=== PATIENT | female | born 1930 | race Caucasian/White ===

== ENCOUNTER 2016-12-03 23:54 | Emergency (ER) | payer MEDICARE, BC ==
--- NOTE | 2016-12-04 00:11 | Emergency Department Record ---
History of Present Illness - General Chief Complaint: Fall Injury Stated Complaint: FALL/CUT HEAD Time Seen by Provider: 12/04/16 00:06 Source: Patient, Family, EMS Mode of Arrival: EMS Limitations: No limitations - History of Present Illness Initial Comments: pt fell backwards after losing her balance and hit the back of her head. there was no loc. MD Complaint: Fall Onset/Timin -: Minutes(s) Fall From: Standing When Fall Occurred: Just prior to arrival Fall Witnessed: No Place Fall Occurred: Home Loss of Consciousness: None Prolonged Down Time?: No Symptoms Prior to Fall: None Location: Head Severity scale (1-10): 3 Associated Symptoms: Denies - [place] Coma Scale Eye Response: (4) Open spontaneously Motor Response: (6) Obeys commands Verbal Response: (5) Oriented [place] Total: 15 - Related Data Home Medications Medication Instructions Recorded Confirmed Last Taken Insulin Aspart [Novolog] 4 unit SQ 1715 PRN 03/26/14 12/04/16 05/10/16 Insulin Glargine,Hum.rec.anlog 12 unit SQ QAM 03/26/14 12/04/16 12/03/16 [Lantus] Amiodarone HCl [Cordarone] 200 mg PO DAILY 04/07/16 12/04/16 12/03/16 Aspirin [Adult Low Dose Aspirin EC] 81 mg PO DAILY 04/07/16 12/04/16 12/03/16 Atorvastatin Calcium [Lipitor] 20 mg PO DAILY 04/07/16 12/04/16 09/03/16 Apixaban [Eliquis] 5 mg PO BID 04/30/16 12/04/16 12/03/16 Spironolactone [Aldactone] 25 mg PO DAILY 08/19/16 12/04/16 12/03/16 Isosorbide Mononitrate [Imdur] 30 mg PO DAILY 12/04/16 12/04/16 12/03/16 Levofloxacin [Levaquin Tab] 500 mg PO ASDIR 12/04/16 12/04/16 Unknown Levothyroxine Sodium [Synthroid] 88 mcg PO DAILY 12/04/16 12/04/16 12/03/16 Torsemide [Demadex] 20 mg PO DAILY 12/04/16 12/04/16 12/03/16 Allergies Allergy/AdvReac Type Severity Reaction Status Date / Time codeine Allergy Unknown ALTERED Verified 05/11/16 08:14 MENTAL STATUS erythromycin base Allergy Unknown ALTERED Verified 05/11/16 08:14 MENTAL STATUS Penicillins Allergy Unknown RASH Verified 05/11/16 08:14 Sulfa (Sulfonamide Allergy Unknown RASH Verified 05/11/16 08:14 Antibiotics) shellfish derived Allergy VOMITING Verified 05/11/16 08:14 Travel Screening - Travel/Exposure Within Last 30 Days Have you traveled within the last 30 days?: No - Travel Symptoms Symptom Screening: None Review of Systems Reviewed: No additional complaints except as noted below Constitutional: Reports: As per HPI. Denies: Chills, Fever, Malaise, Night sweats, Weakness, Weight change Eyes: Reports: As per HPI. Denies: Eye discharge, Eye pain, Photophobia, Vision change ENT: Reports: As per HPI. Denies: Congestion, Dental pain, Ear pain, Epistaxis , Hearing loss, Throat pain Respiratory: Reports: As per HPI. Denies: Cough, Dyspnea, Hemoptysis, Stridor, Wheezes Cardiovascular: Reports: As per HPI. Denies: Arrhythmia, Chest pain, Dyspnea on exertion, Edema, Murmurs, Orthopnea, Palpitations, Paroxysmal nocturnal dyspnea, Rheumatic Fever, Syncope Endocrine: Reports: As per HPI. Denies: Fatigue, Heat or cold intolerance, Polydipsia, Polyuria Gastrointestinal: Reports: As per HPI. Denies: Abdominal pain, Constipation, Diarrhea, Hematemesis, Hematochezia, Melena, Nausea, Vomiting Genitourinary: Reports: As per HPI. Denies: Abnormal menses, Discharge, Dyspareunia, Dysuria, Frequency, Hematuria, Incontinence, Retention, Urgency Musculoskeletal: Reports: As per HPI. Denies: Arthralgia, Back pain, Gout, Joint swelling, Myalgia, Neck pain Skin: Reports: As per HPI. Denies: Bruising, Change in color, Change in hair/ nails, Lesions, Pruritus, Rash Neurological: Reports: As per HPI. Denies: Abnormal gait, Confusion, Headache, Numbness, Paresthesias, Seizure, Tingling, Tremors, Vertigo, Weakness Psychiatric: Reports: As per HPI. Denies: Anxiety, Auditory hallucinations, Depression, Homicidal thoughts, Suicidal thoughts, Visual hallucinations Hematological/Lymphatic: Reports: As per HPI. 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 - Hx Genitourinary Disorders: No - ENDOCRINE Hx Endocrine Disorders: Yes Hx Diabetes: Yes Hx Thyroid Disease: Yes - MUSCULOSKELETAL Hx Musculoskeletal Disorders: Yes Hx Arthritis: Yes - PSYCH Hx Psych Problems: No - HEMATOLOGY/ONCOLOGY Hx Hematology/Oncology Disorders: No Family Medical History Any Significant Family History?: Yes Hx Diabetes: Father Hx Heart Disease: Mother Hx HTN: Mother Physical Exam - General General Appearance: Alert, Oriented x3, Cooperative, Mild distress - Head Head exam: Normal inspection Head exam detail: Laceration - Eye Eye exam: Normal appearance, PERRL, EOMI Pupils: Normal accommodation - ENT ENT exam: Normal exam, Mucous membranes moist, Normal external ear exam, Normal orophraynx Ear exam: Normal external inspection. negative: External canal tenderness Nasal Exam: Normal inspection. negative: Discharge, Sinus tenderness Mouth exam: Normal external inspection, Tongue normal Teeth exam: Normal inspection. negative: Dental caries Throat exam: Normal inspection. negative: Tonsillar erythema, Tonsillar exudate - Neck Neck exam: Normal inspection, Tenderness, Other (in collar). negative: Full ROM - Respiratory Respiratory exam: Normal lung sounds bilaterally. negative: Respiratory distress - Cardiovascular Cardiovascular Exam: Regular rate, Normal rhythm, Normal heart sounds - GI/Abdominal GI/Abdominal exam: Soft, Normal bowel sounds. negative: Tenderness - Rectal Rectal exam: Deferred - exam: Deferred - Extremities Extremities exam: Normal inspection, Full ROM, Normal capillary refill. negative: Tenderness - Back Back exam: Reports: Normal inspection, Full ROM. Denies: Muscle spasm, Rash noted, Tenderness - Neurological Neurological exam: Alert, CN II-XII intact, Normal gait, Oriented X3 - Psychiatric Psychiatric exam: Normal affect, Normal mood - Skin Skin exam: Dry, Intact, Normal color, Warm Course Vital Signs 12/04/16 00:02 Temperature 97.5 F L Pulse Rate [ 60 Pulse Ox Probe] Respiratory 16 Rate Blood Pressure 133/77 [Left Arm] Pulse Ox 97 Medical Decision Making - Management Options MDM Management: Additional Work-up Planned (e.g. ADM/Transfer/OP Study) - Data Complexity MDM Data: X-Ray Ordered and/or Reviewed Disposition Disposition: Discharge Clinical Impression: Head injury due to trauma Qualifiers: Encounter type: initial encounter Qualified Code(s): S09.90XA - Unspecified injury of head, initial encounter Laceration of scalp Qualifiers: Encounter type: initial encounter Qualified Code(s): S01.01XA - Laceration without foreign body of scalp, initial encounter Disposition: Home, Self-Care Condition: (1) Good Instructions: Fall Prevention for Older Adults (ED), Laceration (ED), Staple Care (ED), Minor Head Injury (ED) Additional Instructions: follow up with family doctor. return sooner if worse. jana out in 10-12 days Forms: Patient Portal Access Laceration - Head - Time Out Informed consent:: Informed consent obtained Confirmed first & last name, , procedure, correct site?: Yes Start Date: 12/04/16 Start Time: 01:15 - Location Location of laceration:: Superior, Posterior Laceration located on:: Scalp Length of laceration:: 2.5 Length of laceration:: cm Face/Head: 1 - 2.5cm - Clean and Prep Laceration cleaning method:: Cleansed, Copious Irrigation Laceration cleaning agent:: Normal Saline - Topical Anesthetic Lidocaine used:: 1% with epi EMLA cream used?: No - Medication Medicated for procedure?: No - Procedural Detail Tissue detail:: Torn Foreign body in the wound?: No Undermining was preformed?: No Stent applied?: No Jana applied?: Yes Total number of jana:: 5
--- NOTE | 2016-12-08 10:35 | CT SCAN REPORT ---
EXAM: CT OF THE BRAIN HISTORY: FELL LAST NIGHT, INJURY TO THE BACK OF THE HEAD. TECHNIQUE: CT of the brain was performed without contrast. Comparison: None. Hand dominance: Right. FINDINGS: There is prominence of the ventricles and subarachnoid spaces compatible with atrophy. There is no mass or mass effect. No intra or extraaxial hemorrhage. No CT evidence for large acute territorial infarct. No fracture or acute osseous abnormality identified. There are areas of hypodensity in the periventricular deep cerebral and subcortical white matter regions likely the result of chronic small vessel ischemic change. The visualized sinuses appear clear. IMPRESSION: 1. ATROPHY AND CHRONIC SMALL VESSEL ISCHEMIC CHANGES. 2. NO MASS, HEMORRHAGE, OR ACUTE INTRACRANIAL PROCESS IDENTIFIED. JOB [facility]BER: [id number] [facility]
--- NOTE | 2016-12-08 10:39 | CT SCAN REPORT ---
EXAM: CT OF THE CERVICAL SPINE HISTORY: FELL, NECK INJURY, TENDERNESS IN THE NECK. TECHNIQUE: CT of the cervical spine was performed without contrast. Comparison: None. FINDINGS: No fracture identified. There is reversal of the normal lordotic curvature possibly due to patient positioning or muscle spasm. There are prominent arthritic changes seen throughout the cervical spine. Disk space narrowing is present at all levels and is most pronounced at C5-C6 and C6-C7. There is uncovertebral spurring seen throughout the cervical spine. Facet arthritic changes are present throughout the cervical spine. There is mild effacement of the central canal at C5-C6 and C6-C7. Prominent degenerative end plate spurs are present and are most pronounced at C5-C6 and C6-C7. There is no soft tissue swelling. The dense is unremarkable. IMPRESSION: 1. NO FRACTURE OR ACUTE OSSEOUS ABNORMALITY IDENTIFIED. 2. DIFFUSE ARTHRITIC CHANGES ARE PRESENT THROUGHOUT THE CERVICAL SPINE AND ARE MOST PRONOUNCED AT C5-C6 AND C6-C7. JOB [facility]BER: [id number] [facility]
== END 2016-12-04 01:50 | disposition home or self-care (01) ==
LOC: ER 23:54
DX: S01.01XA Laceration without foreign body of scalp, initial encounter (principal); M54.2 Cervicalgia; W01.0XXA Fall on same level from slipping, tripping and stumbling without subsequent striking against object, initial encounter; Y92.009 Unspecified place in unspecified non-institutional (private) residence as the place of occurrence of the external cause
CPT/HCPCS: 12001; 70450; 72125; 99283; 99284

== ENCOUNTER 2016-12-12 16:07 | Emergency (ER) | payer MEDICARE, BC ==
--- NOTE | 2016-12-12 16:23 | Emergency Department Record ---
History of Present Illness - General Chief Complaint: Suture removal Stated Complaint: JANA REMOVED Time Seen by Provider: 12/12/16 16:19 Source: Patient Mode of arrival: Ambulatory Limitations: No limitations - History of Present Illness Initial Comments: pts lac has healed well w no problems Complaint: Suture/staple removal Returns Today for: Staple/stitch removal Symptoms Since Prior Visit: No new symptoms - Related Data Home Medications Medication Instructions Recorded Confirmed Last Taken Insulin Aspart [Novolog] 4 unit SQ 1715 PRN 03/26/14 12/04/16 05/10/16 Insulin Glargine,Hum.rec.anlog 12 unit SQ QAM 03/26/14 12/04/16 12/03/16 [Lantus] Amiodarone HCl [Cordarone] 200 mg PO DAILY 04/07/16 12/04/16 12/03/16 Aspirin [Adult Low Dose Aspirin EC] 81 mg PO DAILY 04/07/16 12/04/16 12/03/16 Atorvastatin Calcium [Lipitor] 20 mg PO DAILY 04/07/16 12/04/16 09/03/16 Apixaban [Eliquis] 5 mg PO BID 04/30/16 12/04/16 12/03/16 Spironolactone [Aldactone] 25 mg PO DAILY 08/19/16 12/04/16 12/03/16 Isosorbide Mononitrate [Imdur] 30 mg PO DAILY 12/04/16 12/04/16 12/03/16 Levofloxacin [Levaquin Tab] 500 mg PO ASDIR 12/04/16 12/04/16 Unknown Levothyroxine Sodium [Synthroid] 88 mcg PO DAILY 12/04/16 12/04/16 12/03/16 Torsemide [Demadex] 20 mg PO DAILY 12/04/16 12/04/16 12/03/16 Allergies Allergy/AdvReac Type Severity Reaction Status Date / Time codeine Allergy Unknown ALTERED Verified 05/11/16 08:14 MENTAL STATUS erythromycin base Allergy Unknown ALTERED Verified 05/11/16 08:14 MENTAL STATUS Penicillins Allergy Unknown RASH Verified 05/11/16 08:14 Sulfa (Sulfonamide Allergy Unknown RASH Verified 05/11/16 08:14 Antibiotics) shellfish derived Allergy VOMITING Verified 05/11/16 08:14 Review of Systems Reviewed: No additional complaints except as noted below Constitutional: Reports: As per HPI. Denies: Chills, Fever, Malaise, Night sweats, Weakness, Weight change Eyes: Reports: As per HPI. Denies: Eye discharge, Eye pain, Photophobia, Vision change ENT: Reports: As per HPI. Denies: Congestion, Dental pain, Ear pain, Epistaxis , Hearing loss, Throat pain Respiratory: Reports: As per HPI. Denies: Cough, Dyspnea, Hemoptysis, Stridor, Wheezes Cardiovascular: Reports: As per HPI. Denies: Arrhythmia, Chest pain, Dyspnea on exertion, Edema, Murmurs, Orthopnea, Palpitations, Paroxysmal nocturnal dyspnea, Rheumatic Fever, Syncope Endocrine: Reports: As per HPI. Denies: Fatigue, Heat or cold intolerance, Polydipsia, Polyuria Gastrointestinal: Reports: As per HPI. Denies: Abdominal pain, Constipation, Diarrhea, Hematemesis, Hematochezia, Melena, Nausea, Vomiting Genitourinary: Reports: As per HPI. Denies: Abnormal menses, Discharge, Dyspareunia, Dysuria, Frequency, Hematuria, Incontinence, Retention, Urgency Musculoskeletal: Reports: As per HPI. Denies: Arthralgia, Back pain, Gout, Joint swelling, Myalgia, Neck pain Skin: Reports: As per HPI. Denies: Bruising, Change in color, Change in hair/ nails, Lesions, Pruritus, Rash Neurological: Reports: As per HPI. Denies: Abnormal gait, Confusion, Headache, Numbness, Paresthesias, Seizure, Tingling, Tremors, Vertigo, Weakness Psychiatric: Reports: As per HPI. Denies: Anxiety, Auditory hallucinations, Depression, Homicidal thoughts, Suicidal thoughts, Visual hallucinations Hematological/Lymphatic: Reports: As per HPI. 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 - Hx Genitourinary Disorders: No - ENDOCRINE Hx Endocrine Disorders: Yes Hx Diabetes: Yes Hx Thyroid Disease: Yes - MUSCULOSKELETAL Hx Musculoskeletal Disorders: Yes Hx Arthritis: Yes - PSYCH Hx Psych Problems: No - HEMATOLOGY/ONCOLOGY Hx Hematology/Oncology Disorders: No Family Medical History Hx Diabetes: Father Hx Heart Disease: Mother Hx HTN: Mother Physical Exam - General General Appearance: Alert, Oriented x3, Cooperative, No acute distress - Head Head exam: Normal inspection Head exam detail: Laceration (well healed w jana in it) - Eye Eye exam: Normal appearance, PERRL, EOMI Pupils: Normal accommodation - ENT ENT exam: Normal exam, Mucous membranes moist, Normal external ear exam, Normal orophraynx Ear exam: Normal external inspection. negative: External canal tenderness Nasal Exam: Normal inspection. negative: Discharge, Sinus tenderness Mouth exam: Normal external inspection, Tongue normal Teeth exam: Normal inspection. negative: Dental caries Throat exam: Normal inspection. negative: Tonsillar erythema, Tonsillar exudate - Neck Neck exam: Normal inspection, Full ROM. negative: Tenderness - Respiratory Respiratory exam: negative: Respiratory distress - Cardiovascular Cardiovascular Exam: Regular rate - GI/Abdominal GI/Abdominal exam: Soft, Normal bowel sounds. negative: Tenderness - Rectal Rectal exam: Deferred - exam: Deferred - Extremities Extremities exam: Normal inspection, Full ROM, Normal capillary refill. negative: Tenderness - Back Back exam: Reports: Normal inspection, Full ROM. Denies: Muscle spasm, Rash noted, Tenderness - Neurological Neurological exam: Alert, CN II-XII intact, Normal gait, Oriented X3 - Psychiatric Psychiatric exam: Normal affect, Normal mood - Skin Skin exam: Dry, Intact, Normal color, Warm Disposition Disposition: Discharge Clinical Impression: Encounter for Removal of [place] Condition: (1) Good Instructions: Suture Removal (ED) Additional Instructions: follow up with family doctor. return sooner if worse Forms: Patient Portal Access
== END 2016-12-12 16:19 | disposition home or self-care (01) ==
LOC: ER 16:07
DX: Z48.02 Encounter for removal of sutures (principal)

== ENCOUNTER 2016-12-22 11:32 | Day surgery (SDC) | payer MEDICARE, BC ==
[2016-12-22 13:14] LABS: BASO % 0.4 % (0-6); EOS % 4.4 % (0-6); GRAN % 71.7 % (47-80); HEMATOCRIT 34.6 % (35.0-47.0); HEMOGLOBIN 11.5 gm/dl (11.6-16.0); MEAN CORPUSCULAR HGB CONC 33.2 g/dl (32-36); MEAN PLATELET VOLUME 9.7 fl (7.4-10.4); MONO % 10.5 % (0-9); PLATELET COUNT 157 K/uL (130-400); RED BLOOD COUNT 3.53 M/uL (3.80-5.40); RED CELL DISTRIBUTION WIDTH 14.5 % (11.5-14.5); WHITE BLOOD COUNT W/O DIFF 7.4 K/uL (4.2-12.2)
[2016-12-22 13:15] LABS: MEAN CORPUSCULAR HEMOGLOBIN 32.5 pg (27-33)
[2016-12-22 13:32] LABS: ALB/GLOB RATIO 1.1 (1.1-1.8); ALBUMIN 3.4 gm/dL (3.5-5.0); ANION GAP 11.6 (7-16); BILIRUBIN,TOTAL 1.37 mg/dL (0.2-1.3); CARBON DIOXIDE 25.4 mmol/L (22-30); CREATININE 1.1 mg/dL (0.52-1.04); TOTAL PROTEIN 6.6 gm/dL (6.3-8.2)
--- NOTE | 2016-12-23 12:03 | Operative Note ---
PROCEDURE: Cardioversion. DATE OF PROCEDURE: 12/22/2016. OPERATING PHYSICIAN: Titus Walker M.D. PRIMARY CARE PHYSICIAN: Ck Harris D.O. INDICATIONS: Persistent atrial fibrillation. DESCRIPTION OF PROCEDURE: Ms. Betancur was brought into the Cardioversion Room in a fasting state. The defibrillation pads were applied in the anteroposterior position. The patient has a [employer] permanent pacemaker, and pacemaker interrogation was performed. This confirmed the atrial fibrillation. After anesthesia was administered by SEBLE Baker, a synchronized direct current was used for cardioversion. Initially 100 joules of biphasic energy was used which was not successful in cardioverting her. A second attempt with 150 joules of biphasic energy was used which was successful in cardioverting her into sinus rhythm. The patient's pacemaker mode was switched to DDD with a base rate of 65, and AF suppression was also turned on with an upper rate of 85 beats per minute. The patient is hemodynamically stable. IMPRESSION: Successful direct-current cardioversion with 150 joules of biphasic energy. Titus Walker M.D. Date Time JOB NUMBER: [id number] [facility]
== END 2016-12-22 15:00 | disposition home or self-care (01) ==
LOC: SUR 11:32
PROVIDERS: ATTEND Internal Medicine
DX: I48.1 Persistent atrial fibrillation (principal); I10 Essential (primary) hypertension; E03.9 Hypothyroidism, unspecified; E11.9 Type 2 diabetes mellitus without complications; Z79.4 Long term (current) use of insulin; E78.00 Pure hypercholesterolemia, unspecified; Z79.01 Long term (current) use of anticoagulants
CPT/HCPCS: 80053; 85025; 93005

== ENCOUNTER 2017-02-20 12:16 | Emergency (ER) | payer MEDICARE, BC ==
--- NOTE | 2017-02-20 12:33 | Emergency Department Record ---
History of Present Illness - General Chief complaint: Nausea, Vomiting, Diarrhea Stated complaint: VOMITING,DIARRHEA Time Seen by Provider: 02/20/17 12:32 Source: Patient Mode of Arrival: Ambulatory Limitations: No limitations - History of Present Illness Initial comments: The patient is here due to vomiting and nausea for about 8 hours. She only had one long episode of vomiting about 4 hours ago. Additionally she has had loose stools for the last day and a half. She denies any fever, chills, abdominal pain or back pain. The patient denies any new medicines or foods. MD complaint: Diarrhea, Nausea, Vomiting Onset/Timin -: Hour(s) Description of Diarrhea: Other Associated Abdominal Pain: No Radiation: None Improves with: None Worsens with: None Associated Symptoms: Denies other symptoms, Nausea/vomiting - Related Data Home Medications Medication Instructions Recorded Confirmed Last Taken Insulin Aspart [Novolog] 4 unit SQ 1715 PRN 03/26/14 02/20/17 01/09/17 Insulin Glargine,Hum.rec.anlog 14 unit SQ QAM 03/26/14 02/20/17 02/20/17 [Lantus] Amiodarone HCl [Cordarone] 200 mg PO DAILY 04/07/16 02/20/17 02/20/17 Aspirin [Adult Low Dose Aspirin EC] 81 mg PO DAILY 04/07/16 02/20/17 02/20/17 Atorvastatin Calcium [Lipitor] 20 mg PO DAILY 04/07/16 02/20/17 01/10/17 Apixaban [Eliquis] 5 mg PO BID 04/30/16 02/20/17 02/20/17 Spironolactone [Aldactone] 25 mg PO BID 08/19/16 02/20/17 02/20/17 Isosorbide Mononitrate [Imdur] 30 mg PO DAILY 12/04/16 02/20/17 01/10/17 Levothyroxine Sodium [Synthroid] 88 mcg PO DAILY 12/04/16 02/20/17 02/20/17 Torsemide [Demadex] 20 mg PO DAILY 12/04/16 02/20/17 02/20/17 Allergies Allergy/AdvReac Type Severity Reaction Status Date / Time codeine Allergy Unknown ALTERED Verified 02/20/17 12:28 MENTAL STATUS erythromycin base Allergy Unknown ALTERED Verified 02/20/17 12:28 MENTAL STATUS Penicillins Allergy Unknown RASH Verified 02/20/17 12:28 Sulfa (Sulfonamide Allergy Unknown RASH Verified 02/20/17 12:28 Antibiotics) shellfish derived AdvReac VOMITING Verified 02/20/17 12:28 Travel Screening - Travel/Exposure Within Last 30 Days Have you traveled within the last 30 days?: No Review of Systems Constitutional: Denies: Chills, Fever Eyes: Denies: Eye discharge ENT: Denies: Congestion Respiratory: Denies: Cough, Dyspnea Cardiovascular: Denies: Chest pain Past Medical History - SOCIAL HISTORY Smoking Status: Never smoker Alcohol Use: None Drug Use: None - RESPIRATORY Hx Respiratory Disorders: No Hx Bronchitis: Yes (hx of) - CARDIOVASCULAR Hx Cardio Disorders: Yes Hx Hypertension: Yes Hx Irregular Heartbeat: Yes Hx Pacemaker/Defib: Yes Hx Coronary Stent: Yes Comment:: MVP, cardioversion for afib - NEURO Hx Neuro Disorders: No Hx Weakness: Yes (gereralized) - GI Hx GI Disorders: Yes Hx Nausea/Vomiting: Yes (all the time from meds) Hx Wt Loss/Wt Gain: Yes 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 - Hx Genitourinary Disorders: No - ENDOCRINE Hx Endocrine Disorders: Yes Hx Diabetes: Yes - MUSCULOSKELETAL Hx Musculoskeletal Disorders: Yes Hx Arthritis: Yes - PSYCH Hx Psych Problems: No - HEMATOLOGY/ONCOLOGY Hx Hematology/Oncology Disorders: No Hx Bruising: Yes (on eliquis) Hx Cancer: Yes (skin) Hx Blood Transfusions: Yes Hx Blood Transfusion Reaction: No Family Medical History Any Significant Family History?: Yes Hx Diabetes: Father Hx Heart Disease: Mother Hx HTN: Mother Physical Exam - General General Appearance: Alert, Oriented x3, Cooperative, No acute distress - Head Head exam: Atraumatic, Normocephalic, Normal inspection - Eye Eye exam: Normal appearance, PERRL - Neck Neck exam: Normal inspection, Full ROM. negative: Tenderness - Respiratory Respiratory exam: Normal lung sounds bilaterally. negative: Respiratory distress - Cardiovascular Cardiovascular Exam: Regular rate, Normal rhythm, Normal heart sounds - GI/Abdominal GI/Abdominal exam: Soft, Normal bowel sounds, Distended (chronic per patient.). negative: Guarding, Rebound, Rigid, Tenderness - Rectal Rectal exam: Heme (-) stool, Hemorrhoids. negative: Fecal impaction - Extremities Extremities exam: Normal inspection, Full ROM, Normal capillary refill. negative: Tenderness - Neurological Neurological exam: Alert. negative: Motor sensory deficit Course Vital Signs 02/20/17 12:24 Temperature 97.4 F L Pulse Rate 121 H Respiratory 18 Rate Blood Pressure 109/80 Pulse Ox 99 - Reevaluation(s) Reevaluation #1: The patient is doing much better at this time. She denies any nausea, AP, or any further loose stools. On exam her abdomen is soft and nontender. She is up walking with no difficulty and feels ready for home. 02/20/17 13:57 Medical Decision Making - Lab Data Result diagrams: 02/20/17 12:43 02/20/17 12:43 Disposition Disposition: Discharge Clinical Impression: Nausea & vomiting Qualifiers: Vomiting type: unspecified Vomiting Intractability: non-intractable Qualified Code(s): R11.2 - Nausea with vomiting, unspecified Disposition: Home, Self-Care Condition: (1) Good Instructions: Acute Nausea and Vomiting (ED) Additional Instructions: Please continue your regular medicines and see your PCP next week for recheck. Return to the ER for any increased nausea, vomiting, or diarrhea. Forms: Patient Portal Access Time of Disposition: 13:57
[2017-02-20] MEDS ORDERED: ONDANSETRON HCL IV 4 MG/2 ML VIAL IV ONE (12:38)
[2017-02-20] MEDS ORDERED: 0.9 % SODIUM CHLORIDE 1,000 ML BAG IV ONE (12:38)
[2017-02-20 12:51] LABS: BASO % 0.5 % (0-6); EOS % 1.5 % (0-6); GRAN % 74.4 % (47-80); HEMATOCRIT 37.3 % (35.0-47.0); HEMOGLOBIN 12.4 gm/dl (11.6-16.0); LYMPH % 13.2 % (16-45); MEAN CELL VOLUME 96.1 fl (81-97); MEAN CORPUSCULAR HGB CONC 33.2 g/dl (32-36); MONO % 10.4 % (0-9); PLATELET COUNT 176 K/uL (130-400); RED BLOOD COUNT 3.88 M/uL (3.80-5.40); WHITE BLOOD COUNT W/O DIFF 7.5 K/uL (4.2-12.2)
[2017-02-20 13:01] LABS: INR 1.24
[2017-02-20 13:03] LABS: ALBUMIN 3.7 gm/dL (3.5-5.0); ANION GAP 11.7 (7-16); BILIRUBIN,TOTAL 1.17 mg/dL (0.2-1.3); CARBON DIOXIDE 25.3 mmol/L (22-30); CREATININE 1.5 mg/dL (0.52-1.04); TOTAL PROTEIN 7.4 gm/dL (6.3-8.2)
== END 2017-02-20 14:12 | disposition home or self-care (01) ==
LOC: ER 12:16
DX: R11.2 Nausea with vomiting, unspecified (principal); R19.7 Diarrhea, unspecified; I10 Essential (primary) hypertension; E11.9 Type 2 diabetes mellitus without complications; Z79.01 Long term (current) use of anticoagulants; Z79.4 Long term (current) use of insulin
CPT/HCPCS: 99284 ×2; 96374; 96361; 83690; 85025; 85730; 85610; 80076; 80048; J2405; J7030

== ENCOUNTER 2017-02-27 14:49 | Emergency (ER) | payer MEDICARE, BC ==
[2017-02-27 15:46] LABS: BASO % 0.1 % (0-6); EOS % 0.2 % (0-6); HEMATOCRIT 37.2 % (35.0-47.0); HEMOGLOBIN 12.3 gm/dl (11.6-16.0); LYMPH % 3.7 % (16-45); MEAN CELL VOLUME 96.1 fl (81-97); MEAN CORPUSCULAR HEMOGLOBIN 31.8 pg (27-33); MEAN CORPUSCULAR HGB CONC 33.1 g/dl (32-36); MEAN PLATELET VOLUME 9.8 fl (7.4-10.4); MONO % 7.2 % (0-9); PLATELET COUNT 174 K/uL (130-400); RED BLOOD COUNT 3.87 M/uL (3.80-5.40); RED CELL DISTRIBUTION WIDTH 15.2 % (11.5-14.5); WHITE BLOOD COUNT W/O DIFF 15.7 K/uL (4.2-12.2)
[2017-02-27 15:56] LABS: URINE APPEARANCE CLEAR; URINE BILIRUBIN NEGATIVE (NEGATIVE); URINE BLOOD NEGATIVE (NEGATIVE); URINE COLOR YELLOW; URINE GLUCOSE (UA) NEGATIVE (NEGATIVE); URINE KETONE NEGATIVE (NEGATIVE); URINE LEUKOCYTE ESTERASE NEGATIVE (NEGATIVE); URINE NITRITE NEGATIVE (NEGATIVE); URINE PROTEIN NEGATIVE (NEGATIVE); URINE UROBILINOGEN 0.2 E.U./dL (0.20 - 1.00)
[2017-02-27 15:57] LABS: ALBUMIN 3.5 gm/dL (3.5-5.0); ANION GAP 10.9 (7-16); BILIRUBIN,TOTAL 1.83 mg/dL (0.2-1.3); CARBON DIOXIDE 25.1 mmol/L (22-30); CREATININE 2.1 mg/dL (0.52-1.04)
[2017-02-27 16:09] LABS: PLATELET ESTIMATE NORMAL (NORMAL)
--- NOTE | 2017-02-27 16:52 | Emergency Department Record ---
History of Present Illness - General Chief Complaint: Abdominal Pain Stated Complaint: ABD PAIN Time Seen by Provider: 02/27/17 15:01 Source: Patient, Family Mode of Arrival: Ambulatory Limitations: No limitations - History of Present Illness Initial Comments: pt has abd pain and swelling of her abd and no bowel movement for a week. she has nausea. a week ago she had diarrhea and vomiting but that has stopped. she feels like she is retaining a lot of fluid. MD Complaint: Abdominal pain Onset/Timin -: Week(s) Location: Diffuse Radiation: None Migration to: No migration Quality: Aching Consistency: Constant Improves With: Nothing Worsens With: Nothing Associated Symptoms: Constipation, Nausea - Related Data Patient : No Home Medications Medication Instructions Recorded Confirmed Last Taken Insulin Aspart [Novolog] 4 unit SQ 1715 PRN 03/26/14 02/27/17 02/27/17 Insulin Glargine,Hum.rec.anlog 14 unit SQ QAM 03/26/14 02/27/17 02/27/17 [Lantus] Amiodarone HCl [Cordarone] 200 mg PO DAILY 04/07/16 02/27/17 02/27/17 Aspirin [Adult Low Dose Aspirin EC] 81 mg PO DAILY 04/07/16 02/27/17 02/27/17 Atorvastatin Calcium [Lipitor] 20 mg PO DAILY 04/07/16 02/27/17 02/27/17 Apixaban [Eliquis] 5 mg PO BID 04/30/16 02/27/17 02/27/17 Spironolactone [Aldactone] 25 mg PO BID 08/19/16 02/27/17 02/26/17 Levothyroxine Sodium [Synthroid] 88 mcg PO DAILY 12/04/16 02/27/17 02/27/17 Torsemide [Demadex] 20 mg PO DAILY 12/04/16 02/27/17 02/27/17 Allergies Allergy/AdvReac Type Severity Reaction Status Date / Time codeine Allergy Unknown ALTERED Verified 02/20/17 12:28 MENTAL STATUS erythromycin base Allergy Unknown ALTERED Verified 02/20/17 12:28 MENTAL STATUS Penicillins Allergy Unknown RASH Verified 02/20/17 12:28 Sulfa (Sulfonamide Allergy Unknown RASH Verified 02/20/17 12:28 Antibiotics) shellfish derived AdvReac VOMITING Verified 02/20/17 12:28 Travel Screening - Travel/Exposure Within Last 30 Days Have you traveled within the last 30 days?: No - Travel/Exposure Within Last Year Have you traveled outside the [place] in the last year?: No - Additonal Travel Details Have you been exposed to anyone with a communicable illness?: No - Travel Symptoms Symptom Screening: None Review of Systems Reviewed: No additional complaints except as noted below Constitutional: Reports: As per HPI. Denies: Chills, Fever, Malaise, Night sweats, Weakness, Weight change Eyes: Reports: As per HPI. Denies: Eye discharge, Eye pain, Photophobia, Vision change ENT: Reports: As per HPI. Denies: Congestion, Dental pain, Ear pain, Epistaxis , Hearing loss, Throat pain Respiratory: Reports: As per HPI. Denies: Cough, Dyspnea, Hemoptysis, Stridor, Wheezes Cardiovascular: Reports: As per HPI. Denies: Arrhythmia, Chest pain, Dyspnea on exertion, Edema, Murmurs, Orthopnea, Palpitations, Paroxysmal nocturnal dyspnea, Rheumatic Fever, Syncope Endocrine: Reports: As per HPI. Denies: Fatigue, Heat or cold intolerance, Polydipsia, Polyuria Gastrointestinal: Reports: As per HPI. Denies: Abdominal pain, Constipation, Diarrhea, Hematemesis, Hematochezia, Melena, Nausea, Vomiting Genitourinary: Reports: As per HPI. Denies: Abnormal menses, Discharge, Dyspareunia, Dysuria, Frequency, Hematuria, Incontinence, Retention, Urgency Musculoskeletal: Reports: As per HPI. Denies: Arthralgia, Back pain, Gout, Joint swelling, Myalgia, Neck pain Skin: Reports: As per HPI. Denies: Bruising, Change in color, Change in hair/ nails, Lesions, Pruritus, Rash Neurological: Reports: As per HPI. Denies: Abnormal gait, Confusion, Headache, Numbness, Paresthesias, Seizure, Tingling, Tremors, Vertigo, Weakness Psychiatric: Reports: As per HPI. Denies: Anxiety, Auditory hallucinations, Depression, Homicidal thoughts, Suicidal thoughts, Visual hallucinations Hematological/Lymphatic: Reports: As per HPI. Denies: Anemia, Blood Clots, Easy bleeding, Easy bruising, Swollen glands Past Medical History - SOCIAL HISTORY Smoking Status: Never smoker Alcohol Use: None Drug Use: None - RESPIRATORY Hx Respiratory Disorders: No Hx Bronchitis: Yes (hx of) - CARDIOVASCULAR Hx Cardio Disorders: Yes Hx Hypertension: Yes Hx Irregular Heartbeat: Yes Hx Pacemaker/Defib: Yes Hx Coronary Stent: Yes Comment:: MVP, cardioversion for afib - NEURO Hx Neuro Disorders: No Hx Weakness: Yes (gereralized) - GI Hx GI Disorders: Yes Hx Nausea/Vomiting: Yes (all the time from meds) Hx Wt Loss/Wt Gain: Yes Comment:: hx detention constipation - Hx Genitourinary Disorders: No - ENDOCRINE Hx Endocrine Disorders: Yes Hx Diabetes: Yes - MUSCULOSKELETAL Hx Musculoskeletal Disorders: Yes Hx Arthritis: Yes - PSYCH Hx Psych Problems: No - HEMATOLOGY/ONCOLOGY Hx Hematology/Oncology Disorders: No Hx Bruising: Yes (on eliquis) Hx Cancer: Yes (skin) Hx Blood Transfusions: Yes Hx Blood Transfusion Reaction: No Family Medical History Any Significant Family History?: No Hx Diabetes: Father Hx Heart Disease: Mother Hx HTN: Mother Physical Exam - General General Appearance: Alert, Oriented x3, Cooperative, Mild distress - Head Head exam: Normal inspection - Eye Eye exam: Normal appearance, PERRL, EOMI Pupils: Normal accommodation - ENT ENT exam: Normal exam, Mucous membranes moist, Normal external ear exam, Normal orophraynx Ear exam: Normal external inspection. negative: External canal tenderness Nasal Exam: Normal inspection. negative: Discharge, Sinus tenderness Mouth exam: Normal external inspection, Tongue normal Teeth exam: Normal inspection. negative: Dental caries Throat exam: Normal inspection. negative: Tonsillar erythema, Tonsillar exudate - Neck Neck exam: Normal inspection, Full ROM. negative: Tenderness - Respiratory Respiratory exam: Normal lung sounds bilaterally. negative: Respiratory distress - Cardiovascular Cardiovascular Exam: Normal rhythm, Normal heart sounds, Tachycardia - GI/Abdominal GI/Abdominal exam: Soft, Normal bowel sounds, Distended, Tenderness, Other ( fluid wave) - Rectal Rectal exam: Deferred - exam: Deferred - Extremities Extremities exam: Normal inspection, Full ROM, Normal capillary refill. negative: Tenderness - Back Back exam: Reports: Normal inspection, Full ROM. Denies: Muscle spasm, Rash noted, Tenderness - Neurological Neurological exam: Alert, CN II-XII intact, Normal gait, Oriented X3 - Psychiatric Psychiatric exam: Normal affect, Normal mood - Skin Skin exam: Dry, Intact, Normal color, Warm Course Vital Signs 02/27/17 14:58 Temperature 97.4 F L Pulse Rate 117 H Respiratory 18 Rate Blood Pressure 105/75 Pulse Ox 96 Medical Decision Making - Management Options MDM Management: Additional Work-up Planned (e.g. ADM/Transfer/OP Study) - Data Complexity MDM Data: Labs Ordered and/or Reviewed, X-Ray Ordered and/or Reviewed - Lab Data Result diagrams: 02/27/17 15:23 02/27/17 15:23 Lab Results 02/27/17 02/27/17 02/27/17 Range/Units 15:23 15:23 15:45 WBC 15.7 H (4.2-12.2) K/uL RBC 3.87 (3.80-5.40) M/uL Hgb 12.3 (11.6-16.0) gm/dl Hct 37.2 (35.0-47.0) % MCV 96.1 (81-97) fl MCH 31.8 (27-33) pg MCHC 33.1 (32-36) g/dl RDW 15.2 H (11.5-14.5) % Plt Count 174 (130-400) K/uL MPV 9.8 (7.4-10.4) fl Neutrophils % 92.0 H (47-80) % Band Neutrophils % 1.0 (0-5) % Lymphocytes % 3.0 L (16-45) % Monocytes % 4.0 (0-9) % Eosinophils % 0.2 (0-6) % Basophils % 0.1 (0-6) % Platelet Estimate Normal (NORMAL) RBC Morphology Normal Sodium 132 L (136-145) mmol/L Potassium 4.7 (3.5-5.1) mmol/L Chloride 96 L (98-107) mmol/L Carbon Dioxide 25.1 (22-30) mmol/L Anion Gap 10.9 (7-16) BUN 52 H (7-17) mg/dL Creatinine 2.1 H (0.52-1.04) mg/dL Estimated GFR 24 ml/min Random Glucose 121 H (70-110) mg/dL Calcium 10.1 (8.5-10.1) mg/dL Total Bilirubin 1.83 H (0.2-1.3) mg/dL AST 30 (14-36) U/L ALT 29 (9-52) U/L Alkaline Phosphatase 119 (38-126) U/L Total Protein 7.0 (6.3-8.2) gm/dL Albumin 3.5 (3.5-5.0) gm/dL Globulin 3.5 (1.4-4.8) gm/dL Albumin/Globulin Ratio 1.0 L (1.1-1.8) Lipase 61 (23-300) U/L Urine Color Yellow Urine Appearance Clear Urine pH 5.5 (5.0-8.0) Ur Specific [place] 1.015 (1.002-1.030) Urine Protein Negative (NEGATIVE) Urine Glucose (UA) Negative (NEGATIVE) Urine Ketones Negative (NEGATIVE) Urine Blood Negative (NEGATIVE) Urine Nitrite Negative (NEGATIVE) Urine Bilirubin Negative (NEGATIVE) Urine Urobilinogen 0.2 (0.20 - 1.00) E.U./dL Ur Leukocyte Esterase Negative (NEGATIVE) Disposition Disposition: Transfer Clinical Impression: Renal insufficiency Ascites Qualifiers: Ascites type: other type Qualified Code(s): R18.8 - Other ascites Abdominal pain Qualifiers: Abdominal location: generalized Qualified Code(s): R10.84 - Generalized abdominal pain Transfer To: [facility] Reason For Transfer: ascites, hepatic cirrhosis, anasarca Accepting Physician: dr rhodes Time Discussed w/Accepting Physician: 17:55 Forms: Patient Portal Access
== END 2017-02-27 19:41 | disposition short-term general hospital (02) ==
LOC: ER 14:49
DX: N28.9 Disorder of kidney and ureter, unspecified (principal); R18.8 Other ascites; R10.84 Generalized abdominal pain; R11.0 Nausea; I10 Essential (primary) hypertension; E11.9 Type 2 diabetes mellitus without complications; Z79.4 Long term (current) use of insulin; I48.91 Unspecified atrial fibrillation; Z79.01 Long term (current) use of anticoagulants
CPT/HCPCS: 74176; 80053; 81003; 83690; 85027; 93005; 93010; 99285

== ENCOUNTER 2017-03-06 00:27 | Inpatient (IN) | payer MEDICARE, BC ==
[2017-03-06 00:47] LABS: BASO % 0.2 % (0-6); EOS % 1.7 % (0-6); GRAN % 79.3 % (47-80); HEMATOCRIT 38.3 % (35.0-47.0); HEMOGLOBIN 12.7 gm/dl (11.6-16.0); LYMPH % 9.6 % (16-45); MEAN CELL VOLUME 96.2 fl (81-97); MEAN CORPUSCULAR HEMOGLOBIN 31.9 pg (27-33); MEAN CORPUSCULAR HGB CONC 33.2 g/dl (32-36); MONO % 9.2 % (0-9); PLATELET COUNT 175 K/uL (130-400); RED BLOOD COUNT 3.98 M/uL (3.80-5.40); RED CELL DISTRIBUTION WIDTH 15.4 % (11.5-14.5); WHITE BLOOD COUNT W/O DIFF 10.5 K/uL (4.2-12.2)
[2017-03-06 00:59] LABS: ALBUMIN 3.2 gm/dL (3.5-5.0); ANION GAP 11.4 (7-16); BILIRUBIN,TOTAL 1.52 mg/dL (0.2-1.3); CARBON DIOXIDE 24.6 mmol/L (22-30); CREATININE 2.3 mg/dL (0.52-1.04); TOTAL PROTEIN 6.6 gm/dL (6.3-8.2)
--- NOTE | 2017-03-06 01:00 | Emergency Department Record ---
History of Present Illness - General Chief complaint: Pain Stated complaint: FELL/SHOULDER PAIN Time Seen by Provider: 03/06/17 00:39 Source: Patient Mode of Arrival: EMS Limitations: No limitations - History of Present Illness Initial comments: The patient is here due to L shoulder pain for one day. She was recently here at [facility] on 02/27/17 and was found to have a lot of ascites present so she was sent to [facility] [place]acent[place]. That was done yesterday morning and she was sent home after that. When she got home her was helping her in the house and she fell injuring her L shoulder. She also may have injured her neck. Since she has had L shoulder and neck pain. She additionally is complaining of constipation which has been a chronic problem. MD Complaint: Extremity pain Onset/Timin -: Days(s) Severity scale (1-10): 6 Quality: Aching Consistency: Constant, Getting worse Improves with: Nothing Worsens with: Nothing - Related Data Home Medications Medication Instructions Recorded Confirmed Last Taken Insulin Aspart [Novolog] 4 unit SQ 1715 PRN 03/26/14 03/06/17 02/27/17 Insulin Glargine,Hum.rec.anlog 12 unit SQ QAM 03/26/14 03/06/17 02/27/17 [Lantus] Amiodarone HCl [Cordarone] 200 mg PO DAILY 04/07/16 03/06/17 02/27/17 Aspirin [Adult Low Dose Aspirin EC] 81 mg PO DAILY 04/07/16 03/06/17 02/27/17 Atorvastatin Calcium [Lipitor] 20 mg PO DAILY 04/07/16 03/06/17 02/27/17 Apixaban [Eliquis] 2.5 mg PO BID 04/30/16 03/06/17 02/27/17 Spironolactone [Aldactone] 25 mg PO BID 08/19/16 03/06/17 02/26/17 Levothyroxine Sodium [Synthroid] 88 mcg PO DAILY 12/04/16 03/06/17 02/27/17 Furosemide [Lasix] 20 mg PO DAILY 03/06/17 03/06/17 Unknown Isosorbide Mononitrate [Imdur] 30 mg PO DAILY 03/06/17 03/06/17 Unknown Polyethylene Glycol 3350 [Miralax] 1 packet PO DAILY 03/06/17 03/06/17 Unknown Allergies Allergy/AdvReac Type Severity Reaction Status Date / Time codeine Allergy Unknown ALTERED Verified 02/20/17 12:28 MENTAL STATUS erythromycin base Allergy Unknown ALTERED Verified 02/20/17 12:28 MENTAL STATUS Penicillins Allergy Unknown RASH Verified 02/20/17 12:28 Sulfa (Sulfonamide Allergy Unknown RASH Verified 02/20/17 12:28 Antibiotics) shellfish derived AdvReac VOMITING Verified 02/20/17 12:28 Travel Screening - Travel/Exposure Within Last 30 Days Have you traveled within the last 30 days?: No Review of Systems Constitutional: Denies: Chills, Fever, Other Eyes: Denies: Eye discharge, Eye pain ENT: Denies: Congestion Respiratory: Denies: Cough, Dyspnea Cardiovascular: Denies: Chest pain Past Medical History - SOCIAL HISTORY Smoking Status: Never smoker Alcohol Use: None Drug Use: None - RESPIRATORY Hx Respiratory Disorders: No Hx Bronchitis: Yes (hx of) - CARDIOVASCULAR Hx Cardio Disorders: Yes Hx Hypertension: Yes Hx Irregular Heartbeat: Yes Hx Pacemaker/Defib: Yes Hx Coronary Stent: Yes Comment:: MVP, cardioversion for afib - NEURO Hx Neuro Disorders: No Hx Weakness: Yes (gereralized) - GI Hx GI Disorders: Yes Hx Nausea/Vomiting: Yes (all the time from meds) Hx Wt Loss/Wt Gain: Yes Comment:: hx senior care constipation - Hx Genitourinary Disorders: No - ENDOCRINE Hx Endocrine Disorders: Yes Hx Diabetes: Yes - MUSCULOSKELETAL Hx Musculoskeletal Disorders: Yes Hx Arthritis: Yes - PSYCH Hx Psych Problems: No - HEMATOLOGY/ONCOLOGY Hx Hematology/Oncology Disorders: No Hx Bruising: Yes (on eliquis) Hx Cancer: Yes (skin) Hx Blood Transfusions: Yes Hx Blood Transfusion Reaction: No Family Medical History Any Significant Family History?: Yes Hx Diabetes: Father Hx Heart Disease: Mother Hx HTN: Mother Physical Exam - General General Appearance: Alert, Oriented x3, Cooperative, No acute distress - Head Head exam: Atraumatic, Normocephalic, Normal inspection - Eye Eye exam: Normal appearance, PERRL - Neck Neck exam: Normal inspection, Full ROM, Tenderness (There is L posterior tenderness to palpation which exactly reproduces the pain.) - Respiratory Respiratory exam: Normal lung sounds bilaterally. negative: Respiratory distress - Cardiovascular Cardiovascular Exam: Regular rate, Normal rhythm, Normal heart sounds. negative : Diastolic murmur, Systolic murmur - GI/Abdominal GI/Abdominal exam: Soft, Normal bowel sounds, Distended (Chronic.). negative: Guarding, Rebound, Rigid, Tenderness - Extremities Extremities exam: Normal inspection, Tenderness (There is mild L shoulder tenderness.). negative: Full ROM Course Vital Signs 03/06/17 00:31 Pulse Rate 110 H Respiratory 18 Rate Blood Pressure 115/81 Pulse Ox 96 - Reevaluation(s) Reevaluation #1: The patient is doing well at this time. She is presently having a BM on the [place] with the Fleets enema. I did explain that lab tests do demonstrate that she is hypothyroid and she will need more of her thyroid medicines and will need to see her PCP next week for recheck and follow up. 03/06/17 02:30 Reevaluation #2: On recheck the patient is persistently hypothermic. We have been obtaining rectal temps of 93-95F which I do believe is due to the hypothyroidism. This issue coupled with the patient's recently unsteady gait make me reluctant to send the patient home. I did discuss admitting her to the hospital and she is in agreement. I also did discuss advanced directives with her and she would like to be a DNR. 03/06/17 03:02 Medical Decision Making - Data Complexity MDM Data: Labs Ordered and/or Reviewed, X-Ray Ordered and/or Reviewed, EKG Ordered and/or Reviewed - Lab Data Result diagrams: 03/06/17 00:40 03/06/17 00:40 Lab Results 03/06/17 Range/Units 00:40 WBC 10.5 (4.2-12.2) K/uL RBC 3.98 (3.80-5.40) M/uL Hgb 12.7 (11.6-16.0) gm/dl Hct 38.3 (35.0-47.0) % MCV 96.2 (81-97) fl MCH 31.9 (27-33) pg MCHC 33.2 (32-36) g/dl RDW 15.4 H (11.5-14.5) % Plt Count 175 (130-400) K/uL MPV 10.0 (7.4-10.4) fl Gran % 79.3 (47-80) % Lymphocytes % 9.6 L (16-45) % Monocytes % 9.2 H (0-9) % Eosinophils % 1.7 (0-6) % Basophils % 0.2 (0-6) % - EKG Data -: EKG Interpreted by Me EKG: No Acute Changes (Vent paced at 109.) - Radiology Data Radiology results: Report reviewed (Head and Neck CT: Neg for any acute changes. ), Image reviewed (L shoulder: Neg for any acute changes. The positioning on the Y view is suboptimal but clinically neg.) Disposition Disposition: Admit Clinical Impression: Renal insufficiency Hypothyroidism Qualifiers: Hypothyroidism type: other Qualified Code(s): E03.8 - Other specified hypothyroidism Disposition: Still a Patient at [facility] Decision to Admit: Admit from ER Decision to Admit Date: 03/06/17 Decision to Admit Time: 03:22 Accepting Physician: Perri Time Discussed w/Accepting Physician: 03:22 Condition: (1) Good Instructions: Hypothyroidism (ED), Cervical Sprain (ED) Additional Instructions: Please take low dose Tylenol for pain and take an extra 1/2 dose of your thyroid medicine daily. Please see your PCP early next week for recheck. Return to the ER for any problems. Forms: Patient Portal Access Time of Disposition: 03:22
[2017-03-06] MEDS ORDERED: 0.9 % SODIUM CHLORIDE 1,000 ML BAG IV ONE (01:07)
[2017-03-06 01:15] LABS: INR 1.37; PARTIAL THROMBOPLASTIN TIME 31.4 SECONDS (24.5-39.1); PROTHROMBIN TIME (PATIENT) 15.5 SECONDS (9.5-12.1)
[2017-03-06] MEDS ORDERED: ACETAMINOPHEN 325 MG TAB PO ONE (02:44)
[2017-03-06] MEDS ORDERED: MORPHINE SULFATE 5 MG/ML PFS IVP ONE (03:00)
[2017-03-06 03:17] LABS: CKMB 3.1 ug/L (0-6)
[2017-03-06] MEDS ORDERED: 0.9 % SODIUM CHLORIDE 1000ML 1,000 ML IV PRN (03:22)
[2017-03-06] MEDS ORDERED: INSULIN ASPART 4 UNIT SQ PRN (03:24)
[2017-03-06] MEDS: MORPHINE SULFATE 5 MG/ML PFS IVP PRN (04:26)
[2017-03-06] MEDS ORDERED: LEVOTHYROXINE SODIUM 75 MCG TABLET PO SCH (04:30)
[2017-03-06] MEDS: ACETAMINOPHEN 500 MG TABLET PO PRN (05:48)
[2017-03-06] MEDS: ONDANSETRON HCL IV 4 MG/2 ML VIAL IVP PRN ×2 (06:19→10:47)
[2017-03-06 06:30] LABS: HEMATOCRIT 37.8 % (35.0-47.0); HEMOGLOBIN 12.5 gm/dl (11.6-16.0); MEAN CELL VOLUME 95.9 fl (81-97); MEAN CORPUSCULAR HEMOGLOBIN 31.7 pg (27-33); MEAN CORPUSCULAR HGB CONC 33.1 g/dl (32-36); MEAN PLATELET VOLUME 10.2 fl (7.4-10.4); PLATELET COUNT 172 K/uL (130-400); RED BLOOD COUNT 3.94 M/uL (3.80-5.40); RED CELL DISTRIBUTION WIDTH 15.4 % (11.5-14.5); WHITE BLOOD COUNT W/O DIFF 13.7 K/uL (4.2-12.2)
[2017-03-06 06:36] LABS: ANION GAP 10.1 (7-16); CARBON DIOXIDE 22.9 mmol/L (22-30); CREATININE 2.4 mg/dL (0.52-1.04)
[2017-03-06] MEDS ORDERED: LEVOTHYROXINE SODIUM 88 MCG TABLET PO SCH ×3 (07:00→10:00)
[2017-03-06] MEDS ORDERED: POLYETHYLENE GLY 17 GM PACKET PO SCH (10:00)
[2017-03-06] MEDS ORDERED: INSULIN GLARGINE HUM REC ANLOG 12 UNIT SQ SCH (10:00)
[2017-03-06] MEDS: POLYETHYLENE GLY 17 GM PACKET PO SCH (10:28)
[2017-03-06] MEDS: ATORVASTATIN 20 MG TABLET PO SCH (10:28)
[2017-03-06] MEDS: ASPIRIN 81 MG TABEC PO SCH (10:28)
[2017-03-06] MEDS: LEVEMIR FLEXTOUCH 100 UNIT/ML INSULIN PEN SQ SCH (10:40)
[2017-03-06] MEDS: AMIODARONE HCL 200 MG TABLET PO SCH (10:40)
[2017-03-06] MEDS: ISOSORBIDE MONONITRATE 30 MG TAB.ER.24H PO SCH (11:51)
[2017-03-06] MEDS: SPIRONOLACTONE 25 MG TAB PO SCH ×3 (11:51→23:20)
[2017-03-06] MEDS: FUROSEMIDE 20 MG TABLET PO SCH ×2 (11:51→13:35)
--- NOTE | 2017-03-06 17:54 | History & Physical ---
History of Present Illness - Date of Service Date of Service for History & Physical: 03/06/17 - History of Present Illness Admitting Diagnosis: 1. Inability to Walk with Hypothyroidism and Renal Insuffiency. History of Present Illness: 86yo female with CC of shoulder and neck pain. She has a history of dementia, CAD, diabetes, sick sinus syndrome with pacemaker placement, paroxysmal afib, cirrhosis of the liver with ascites, CKD, hypothyroidism, hyperlipidemia and hypertension. Patient was brought to the ED by ambulance for left shoulder pain. She had a reported fall on 03/01/17 after being discharged from [facility]. While in the ED, patient had head Ct which was negative for acute changes, Cervical Ct which was negative for fracture and left shoulder XR negative for fracture. CMP showed CKD stable. TSH was elevated at 28. patient complained of constipation which resolved after having a large BM from fleets enema. She was admitted for intractable pain, recent falls, electrolyte abnormalities. 03/06/17- patient resting comfortably in bed. Says this is the first time all week she has been out of pain. states she has not been sleeping at all this week. patient is oriented to person and place but not to time. Both patient and her have memory deficits and they live with their granddaughter who has muscular dystrophy. Patient currently denies abdominal pain, swelling, neck or shoulder pain, or headache. Requested records from [facility] since patient was recently admitted there. She had been to our ED on 02/27 and found to have ascites which is new for her. She was transferred and admitted to [facility]. She was unable to have paracentesis during admission due to taking eliquis and needed to be off of that for at least 3 days prior. her labs during that stay were simlar to today with slight WBC elevation, Cr of 2.55. She was discharged home on 03/01 and actually fell while trying to get in to her house after being discharged. She was seen at [facility] ED on 03/03 for her neck and shoulder pain and had negative CT and XR done at that time as well. she was discharged home with a cspine collar for sprain. both patient and her had completely forgotten about that visit to the ED. When patient was discharged from [facility] on 03/01 she was to hold eliquis and start cipro 500mg daily for SB prophylaxis. Patient and son confirm she had paracentesis on 03/04. She has not restarted her eliquis and has not had further cipro. Patient's son admits his mother is probably not capable of setting up her home medications and isn't sure if she has been taking everything. pcp: claudette Travel Screening - Travel/Exposure Within Last 30 Days Have you traveled within the last 30 days?: No Review of Systems Constitutional: Denies: Chills, Fever, Other Eyes: Denies: Eye discharge, Eye pain ENT: Denies: Congestion Respiratory: Denies: Cough, Dyspnea Cardiovascular: Denies: Chest pain, Palpitations Endocrine: Reports: Fatigue Gastrointestinal: Reports: Constipation. Denies: Abdominal pain, Nausea, Vomiting Musculoskeletal: Reports: Arthralgia (left shoulder pain) Past Medical History - SOCIAL HISTORY Smoking Status: Never smoker Alcohol Use: None Drug Use: None - RESPIRATORY Hx Respiratory Disorders: No Hx Bronchitis: Yes (hx of) - CARDIOVASCULAR Hx Cardio Disorders: Yes Hx Hypertension: Yes Hx Irregular Heartbeat: Yes Hx Pacemaker/Defib: Yes Hx Coronary Stent: Yes Comment:: MVP, cardioversion for afib - NEURO Hx Neuro Disorders: No Hx Weakness: Yes (gereralized) - GI Hx GI Disorders: Yes Hx Nausea/Vomiting: Yes (all the time from meds) Hx Wt Loss/Wt Gain: Yes 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 - Hx Genitourinary Disorders: No - ENDOCRINE Hx Endocrine Disorders: Yes Hx Diabetes: Yes - MUSCULOSKELETAL Hx Musculoskeletal Disorders: Yes Hx Arthritis: Yes - PSYCH Hx Psych Problems: No - HEMATOLOGY/ONCOLOGY Hx Hematology/Oncology Disorders: No Hx Bruising: Yes (on eliquis) Hx Cancer: Yes (skin) Hx Blood Transfusions: Yes Hx Blood Transfusion Reaction: No Family Medical History Any Significant Family History?: Yes Hx Diabetes: Father Hx Heart Disease: Mother Hx HTN: Mother H&P Meds/Allergies - Allergies Allergies: Allergies Allergy/AdvReac Type Severity Reaction Status Date / Time codeine Allergy Unknown ALTERED Verified 02/20/17 12:28 MENTAL STATUS erythromycin base Allergy Unknown ALTERED Verified 02/20/17 12:28 MENTAL STATUS Penicillins Allergy Unknown RASH Verified 02/20/17 12:28 Sulfa (Sulfonamide Allergy Unknown RASH Verified 02/20/17 12:28 Antibiotics) shellfish derived AdvReac VOMITING Verified 02/20/17 12:28 - Home Medications Home Medications Medication Instructions Recorded Confirmed Last Taken Insulin Aspart [Novolog] 4 unit SQ 1715 PRN 03/26/14 03/06/17 02/27/17 Insulin Glargine,Hum.rec.anlog 12 unit SQ QAM 03/26/14 03/06/17 02/27/17 [Lantus] Amiodarone HCl [Cordarone] 200 mg PO DAILY 04/07/16 03/06/17 02/27/17 Aspirin [Adult Low Dose Aspirin EC] 81 mg PO DAILY 04/07/16 03/06/17 02/27/17 Atorvastatin Calcium [Lipitor] 20 mg PO DAILY 04/07/16 03/06/17 02/27/17 Apixaban [Eliquis] 5 mg PO BID 04/30/16 03/06/17 02/27/17 Spironolactone [Aldactone] 25 mg PO BID 08/19/16 03/06/17 02/26/17 Levothyroxine Sodium [Synthroid] 88 mcg PO DAILY 12/04/16 03/06/17 02/27/17 Ciprofloxacin HCl [Cipro] 500 mg PO DAILY 03/06/17 03/06/17 Unknown Furosemide [Lasix] 20 mg PO DAILY 03/06/17 03/06/17 Unknown Isosorbide Mononitrate [Imdur] 30 mg PO DAILY 03/06/17 03/06/17 Unknown Polyethylene Glycol 3350 [Miralax] 1 packet PO DAILY 03/06/17 03/06/17 Unknown Torsemide [Demadex] 20 mg PO DAILY 03/06/17 03/06/17 Unknown - Active Medications Active Medications: Current Medications Acetaminophen (Tylenol 500mg Tab) 500 mg PO Q6H PRN PRN Reason: PAIN/TEMP Last Admin: 03/06/17 05:48 Dose: 500 mg Amiodarone HCl (Pacerone) 200 mg PO DAILY [facility] Last Admin: 03/06/17 10:40 Dose: 200 mg Aspirin (Ecotrin (Ec)) 81 mg PO DAILY [facility] Last Admin: 03/06/17 10:28 Dose: 81 mg Atorvastatin Calcium (Lipitor) 20 mg PO DAILY [facility] Last Admin: 03/06/17 10:28 Dose: 20 mg Furosemide (Lasix) 20 mg PO DAILY [facility] Last Admin: 03/06/17 13:35 Dose: 20 mg Insulin Detemir (Levemir Flextouch) 12 unit SQ QD [facility] Last Admin: 03/06/17 10:40 Dose: Not Given Isosorbide Mononitrate (Imdur) 30 mg PO DAILY [facility] Last Admin: 03/06/17 11:51 Dose: Not Given [facility] Morphine Sulfate (Morphine Sulfate) 2 mg IVP Q4HR PRN PRN Reason: Analgesia Stop: 03/13/17 03:24 Last Admin: 03/06/17 04:26 Dose: 2 mg Non-Formulary Medication (Insulin Aspart [Novolog]) 4 unit SQ 1715 PRN PRN Reason: Hyperglycemica Ondansetron HCl (Zofran) 4 mg IVP Q4H PRN PRN Reason: NAUSEA Last Admin: 03/06/17 10:47 Dose: 4 mg Polyethylene Glycol (Miralax) 17 gm PO DAILY [facility] Last Admin: 03/06/17 10:28 Dose: 17 gm Spironolactone (Aldactone) 25 mg PO BID [facility] Last Admin: 03/06/17 13:35 Dose: 25 mg Physical Exam - Vital Signs Vital Signs: Vital Signs - Last 24 Hrs Temp Pulse Pulse Resp BP BP BP 03/06/17 10:37 97.5 F L 102 H 16 104/68 88/63 03/06/17 08:24 18 03/06/17 07:15 97.4 F L 105 H 18 96/71 03/06/17 03:40 97.7 F 108 H 16 104/73 03/06/17 03:37 108 H 16 94/67 Pulse Ox 03/06/17 10:37 91 L 03/06/17 08:24 03/06/17 07:15 93 L 03/06/17 03:40 96 03/06/17 03:37 94 L - General General Appearance: Alert, Cooperative, No acute distress Limitations: Altered mental status (chronic dementia; son states she is at her baseline) - Head Head exam: Atraumatic, Normocephalic, Normal inspection - Eye Eye exam: Normal appearance, PERRL - Neck Neck exam: Normal inspection, Full ROM. negative: Tenderness - Respiratory Respiratory exam: Normal lung sounds bilaterally. negative: Respiratory distress - Cardiovascular Cardiovascular Exam: Regular rate, Normal rhythm, Normal heart sounds. negative : Diastolic murmur, Systolic murmur - GI/Abdominal GI/Abdominal exam: Soft, Normal bowel sounds, Distended (soft; no tenderness to light/deep palpation. no fluid wave. bruise of llq from paracentesis ). negative: Guarding, Rebound, Rigid, Tenderness - Extremities Extremities exam: Normal inspection, Tenderness (There is mild L shoulder tenderness.). negative: Full ROM Results - Labs Result Diagrams: 03/06/17 05:30 03/06/17 05:30 Labs Last 24 Hours: Laboratory Results - last 24 hr 03/06/17 03/06/17 03/06/17 05:30 05:30 05:30 WBC 13.7 H Cancelled Corrected WBC Cancelled RBC 3.94 Cancelled Hgb 12.5 Cancelled Hct 37.8 Cancelled MCV 95.9 Cancelled MCH 31.7 Cancelled MCHC 33.1 Cancelled RDW 15.4 H Cancelled Plt Count 172 Cancelled MPV 10.2 Cancelled Gran % Cancelled Neutrophils % 85.0 H Cancelled Band Neutrophils % Cancelled Lymphocytes % 5.0 L Cancelled Monocytes % 10.0 H Cancelled Eosinophils % Not Reportable Cancelled Basophils % Not Reportable Cancelled Metamyelocytes Cancelled Myelocytes Cancelled Promyelocytes Cancelled Nucleated RBCs Cancelled Differential Comment Cancelled Hypersegmented Polys Cancelled Plasma Cells Cancelled Other Cell Type Cancelled Toxic Granulation Cancelled Dohle Bodies Cancelled Nasreen Rods Cancelled Platelet Estimate Cancelled RBC Morphology Cancelled Polychromasia Cancelled Hypochromasia Cancelled Poikilocytosis Cancelled Basophilic Stippling Cancelled Anisocytosis Cancelled Microcytosis Cancelled Macrocytosis Cancelled Spherocytes Cancelled Sickle Cells Cancelled Target Cells Cancelled Tear Drop Cells Cancelled Ovalocytes Cancelled Stomatocytes Cancelled Helmet Cells Cancelled Reza-[place] Bodies Cancelled Ripley Rings Cancelled [place] Cells Cancelled Acanthocytes (Spur) Cancelled Rouleaux Cancelled Schistocytes Cancelled Morphology Comment Cancelled Sodium 128 L Potassium 4.3 Chloride 95 L Carbon Dioxide 22.9 Anion Gap 10.1 BUN 52 H Creatinine 2.4 H Estimated GFR 20 POC Glucose Random Glucose 88 Calcium 9.6 Ammonia 03/06/17 03/06/17 11:36 14:55 WBC Corrected WBC RBC Hgb Hct MCV MCH MCHC RDW Plt Count MPV Gran % Neutrophils % Band Neutrophils % Lymphocytes % Monocytes % Eosinophils % Basophils % Metamyelocytes Myelocytes Promyelocytes Nucleated RBCs Differential Comment Hypersegmented Polys Plasma Cells Other Cell Type Toxic Granulation Dohle Bodies Nasreen Rods Platelet Estimate RBC Morphology Polychromasia Hypochromasia Poikilocytosis Basophilic Stippling Anisocytosis Microcytosis Macrocytosis Spherocytes Sickle Cells Target Cells Tear Drop Cells Ovalocytes Stomatocytes Helmet Cells Reza-[place] Bodies [place] Rings [place] Cells Acanthocytes (Spur) Rouleaux Schistocytes Morphology Comment Sodium Potassium Chloride Carbon Dioxide Anion Gap BUN Creatinine Estimated GFR POC Glucose 84 Random Glucose Calcium Ammonia < 8.7 L VTE H&P Assessment - Risk for VTE Risk for VTE: Yes Risk Level: High Risk Assessment Date: 03/06/17 Risk Assessment Time: 18:43 VTE Orders Placed or Will Be Placed: Yes Plan - Inpatient Certification Inpatient Certification: Admit to inpatient care: Based on my medical assessment, after consideration of patient's risk factors (age, co-morbidities and patient presenting symptoms and acuity), I expect that this patient will remain in the hospital greater than or equal to two midnights and that the services needed warrant inpatient care because: Patient Risk Factors: [age, recent fall, frequent hospitalizations, weakness, cirrhosis with ascites, CKD, hypothyroidism] Estimated length of stay: [72-96H] The patient may reasonably be expected to be discharged or transferred to a hospital within 96 hours after admission to [facility]. Services needed: [PT/OT, IV fluids, lab monitoring] Post hospital care (if known): [] I certify that my determination is in accordance with my understanding of Medicare requirements for reasonable and necessary inpatient services. 03/06/17 18:43 - Detailed Diagnosis and Plan (1) Cirrhosis of liver with ascites Current Visit: Yes Status: Acute Base Code: K74.60 - UNSPECIFIED CIRRHOSIS OF LIVER Comment: 03/06/17- stable. patient underwent paracentesis on 03/04 at [facility]. requested records. Was discharged on 03/01 with cipro for SBP prophylaxis but patient not sure if she has been taking that. WBC slightly elevated 13. patient is afebrile and denies any abdominal pain. had bowel movement last night. -ordered ammonia level with fall, weakness -[place] [facility] [place] -saline lock and 2L fluid restricted diet -continue lasix and aldactone for ascites -will add cipro tomorrow if wbc count remains elevated (2) Weakness Current Visit: Yes Status: Acute Base Code: R53.1 - WEAKNESS Comment: - improved. likely chronic with acute worsening following recent hospitalizations and electrolyte abnormalities. -will order pt/ot evaluation (3) Hypothyroidism Current Visit: Yes Status: Acute Qualifiers: Hypothyroidism type: other Qualified Code(s): E03.8 - Other specified hypothyroidism Base Code: E03.9 - HYPOTHYROIDISM, UNSPECIFIED Comment: 03/06/17- TSH elevated at 28. Likely 2/2 poor medication compliance. patient is currently managing her medications at home and admits she isn't sure she is taking everything correctly. Her undertreated hypothyroidism is likely causing fatigue, constipation, cold intolerance. -Will re-start her synthroid at 100mcg daily 30 mintues prior to meals. -she will need follow up with her pcp to re-check TSH in 4-6 weeks (4) Renal insufficiency Current Visit: Yes Status: Acute Base Code: N28.9 - DISORDER OF KIDNEY AND URETER, UNSPECIFIED Comment: 03/06/17- Stable. BUN and Cr are stable from previous admission to [facility] last week. no acute changes following her paracentesis -will saline lock to avoid fluid overload -recheck labs qam (5) Electrolyte abnormality Current Visit: Yes Status: Acute Base Code: E87.8 - OTH DISORDERS OF ELECTROLYTE AND FLUID BALANCE, NEC Comment: 03/06/17- sodium low at 128. had been chronically hyponatremic around 132. -will saline lock since sodium decreaed after fluid bolus. -recheck tomorrow (6) Shoulder pain Current Visit: Yes Status: Acute Base Code: M25.519 - PAIN IN UNSPECIFIED SHOULDER Comment: 03/06/17- patient had fall on 03/01 the day she was discharged from [facility]. was seen in [facility] ED on 03/03 and had negative imaging of neck and shoulder at that time. Had repeat imaging done here which confirms previous results. patient reports her pain is now controlled for the first time this week. -continue morphine 2mg IV qH prn severe pain. patient has only required one dose while in ED (7) DNR (do not resuscitate) Current Visit: Yes Status: Acute Base Code: Z66 - DO NOT RESUSCITATE Comment: 03/06/17- patient is dnr (8) DVT prophylaxis Current Visit: No Status: Acute Base Code: [id number] - Comment: 03/06/17- patient high risk with age and h/o p. afib. had been on eliquis which was stopped for paracentesis done on 03/04. requested procedure notes from that to see when they ahd wanted her to resume eliquis -will add SCD's -will restart eliquis tomorrow (pod #3) at the latest while waiting for report
[2017-03-06] MEDS ORDERED: DIPHENHYDRAMINE HCL 25 MG CAPSULE PO PRN (20:22)
[2017-03-07] MEDS: LEVOTHYROXINE SODIUM 100 MCG TABLET PO SCH (06:31)
[2017-03-07 06:39] LABS: BASO % 0.2 % (0-6); EOS % 2.3 % (0-6); HEMATOCRIT 37.2 % (35.0-47.0); HEMOGLOBIN 12.1 gm/dl (11.6-16.0); LYMPH % 13.9 % (16-45); MEAN CELL VOLUME 98.2 fl (81-97); MEAN CORPUSCULAR HEMOGLOBIN 31.9 pg (27-33); MEAN CORPUSCULAR HGB CONC 32.5 g/dl (32-36); MEAN PLATELET VOLUME 10.2 fl (7.4-10.4); MONO % 8.6 % (0-9); PLATELET COUNT 176 K/uL (130-400); RED BLOOD COUNT 3.79 M/uL (3.80-5.40)
[2017-03-07 06:41] LABS: ALB/GLOB RATIO 0.9 (1.1-1.8); ALBUMIN 2.9 gm/dL (3.5-5.0); ANION GAP 9.3 (7-16); BILIRUBIN,TOTAL 1.45 mg/dL (0.2-1.3); CARBON DIOXIDE 24.7 mmol/L (22-30); CREATININE 2.4 mg/dL (0.52-1.04); TOTAL PROTEIN 6.2 gm/dL (6.3-8.2)
[2017-03-07] MEDS: MORPHINE SULFATE 5 MG/ML PFS IVP PRN (09:14)
[2017-03-07] MEDS: SPIRONOLACTONE 25 MG TAB PO SCH ×2 (09:19→21:43)
[2017-03-07] MEDS: ASPIRIN 81 MG TABEC PO SCH (09:20)
[2017-03-07] MEDS: POLYETHYLENE GLY 17 GM PACKET PO SCH (09:21)
[2017-03-07] MEDS: ISOSORBIDE MONONITRATE 30 MG TAB.ER.24H PO SCH (09:21)
[2017-03-07] MEDS: ATORVASTATIN 20 MG TABLET PO SCH (09:21)
[2017-03-07] MEDS: FUROSEMIDE 20 MG TABLET PO SCH (09:21)
--- NOTE | 2017-03-07 09:21 | Physician Progress Note ---
Subjective - Date Date of Physician Progress Note: 03/07/17 - Subjective Subjective Comment: 03/07/17- Patient more alert today and is resting comfortably in bed. She is oriented x3 today. She says her left shoulder is bothering but felt the tramadol she received this morning was helpful. She was able to get up and shower today with minimal assistance from nursing. She denies any abdominal pain. Has not had another BM since the one she had in ED. She admits today that she had not been taking her synthroid the past week at least. She says she was back and forth from the hospital so many times she can't remember what she was taking. States today that she and her just recently moved in with their granddaughter about a month ago. No other family members present to discuss living situation. Objective - Vital Signs Vital Signs: Vital Signs - Last 24 Hrs Temp Pulse Resp BP BP Pulse Ox 03/07/17 07:00 97.6 F 110 H 18 108/73 95 03/06/17 23:01 103 H 100/53 03/06/17 20:00 97.7 F 102 H 16 90/67 95 03/06/17 10:37 97.5 F L 102 H 16 104/68 88/63 91 L - General General Appearance: Alert, Cooperative, No acute distress Limitations: Altered mental status (chronic dementia; son states she is at her baseline) - Head Head exam: Atraumatic, Normocephalic, Normal inspection - Eye Eye exam: Normal appearance, PERRL - Neck Neck exam: Normal inspection, Full ROM. negative: Tenderness - Respiratory Respiratory exam: Normal lung sounds bilaterally. negative: Respiratory distress - Cardiovascular Cardiovascular Exam: Regular rate, Normal rhythm, Normal heart sounds. negative : Diastolic murmur, Systolic murmur - GI/Abdominal GI/Abdominal exam: Soft, Normal bowel sounds, Distended (soft; no tenderness to light/deep palpation. no fluid wave. bruise of rlq from paracentesis ). negative: Guarding, Rebound, Rigid, Tenderness - Extremities Extremities exam: Normal inspection, Tenderness (There is mild L shoulder tenderness.). negative: Full ROM Assessment and Plan - Assessment and Plan (1) Cirrhosis of liver with ascites Current Visit: Yes Status: Acute Base Code: K74.60 - UNSPECIFIED CIRRHOSIS OF LIVER Comment: 03/07/17- stable. WBC down to 9 this morning. not having any abdominal pain or tenderness. patient underwent paracentesis on 03/04 [place] [facility]. requested records but have not obtained yet. Was discharged on 03/01 with cipro for SBP prophylaxis but patient not sure if she has been taking that. patient is afebrile. ammonia wnl -[place] [facility] [place] -saline lock and 2L fluid restricted diet -continue lasix and aldactone for ascites (2) Weakness Current Visit: Yes Status: Acute Base Code: R53.1 - WEAKNESS Comment: - improving. likely chronic with acute worsening following recent hospitalizations and electrolyte abnormalities. -will order pt/ot evaluation -will consut Social Work to discuss discharge. Do not feel patient or are capable of setting up her medications and feel she would do well with either home health care vs placement (3) Hypothyroidism Current Visit: Yes Status: Acute Qualifiers: Hypothyroidism type: other Qualified Code(s): E03.8 - Other specified hypothyroidism Base Code: E03.9 - HYPOTHYROIDISM, UNSPECIFIED Comment: 03/07/17- TSH elevated at 28. 2/2 poor medication compliance. Her undertreated hypothyroidism is likely causing fatigue, constipation, cold intolerance. -Will re-start her synthroid at 100mcg daily 30 mintues prior to meals. -she will need follow up with her pcp to re-check TSH in 4-6 weeks (4) Renal insufficiency Current Visit: Yes Status: Acute Base Code: N28.9 - DISORDER OF KIDNEY AND URETER, UNSPECIFIED Comment: 03/07/17- Stable. BUN and Cr are stable at 53/2.4 wiith eGFR of 20. -will saline lock to avoid fluid overload -recheck labs qam (5) Electrolyte abnormality Current Visit: Yes Status: Acute Base Code: E87.8 - OTH DISORDERS OF ELECTROLYTE AND FLUID BALANCE, NEC Comment: 03/07/17- sodium up to 129 today. had been chronically hyponatremic around 132 based on previous visits. Patient is high risk for fluid overload with cirrhosis and CKD. I do not believe any of her current symptoms are related to hyponatremia so will try and let it naturally correct. -will encourage oral fluid intake up to 2L -continue to saline lock -rechecklabs qam (6) Shoulder pain Current Visit: Yes Status: Acute Base Code: M25.519 - PAIN IN UNSPECIFIED SHOULDER Comment: 03/07/17- patient had fall on 03/01 the day she was discharged from [facility]. was seen in [facility] ED on 03/03 and had negative imaging of neck and shoulder at that time. Had repeat imaging done here which confirms previous results. patient reports her pain is now controlled for the first time this week. -will do trial of tramadol for pain controll with cirrhosis and CKD would like to avoid NSAID/acetaminophin (7) Dementia Current Visit: Yes Status: Acute Qualifiers: Dementia type: unspecified type Dementia behavioral disturbance: without behavioral disturbance Qualified Code(s): F03.90 - Unspecified dementia without behavioral disturbance Base Code: F03.90 - UNSPECIFIED DEMENTIA WITHOUT BEHAVIORAL DISTURBANCE Comment: 03/07/17- chronic dementia. Son stated yesterday she was at her baseline. -continue to monitor for acute changes (8) DNR (do not resuscitate) Current Visit: Yes Status: Acute Base Code: Z66 - DO NOT RESUSCITATE Comment: 03/07/17- patient is dnr (9) DVT prophylaxis Current Visit: No Status: Acute Base Code: [id number] - Comment: 03/07/17- patient high risk with age and h/o p. afib. had been on eliquis which was stopped for paracentesis done on 03/04. requested procedure notes from that to see when they ahd wanted her to resume eliquis which I did not receive. -re-start eliquis 5mg po bid Results - Labs Result Diagrams: 03/07/17 05:50 03/07/17 05:50 Labs Last 24 Hours: Laboratory Results - last 24 hr 03/06/17 03/06/17 03/06/17 11:36 14:55 18:10 WBC RBC Hgb Hct MCV MCH MCHC RDW Plt Count MPV Gran % Lymphocytes % Monocytes % Eosinophils % Basophils % Sodium Potassium Chloride Carbon Dioxide Anion Gap BUN Creatinine Estimated GFR POC Glucose 84 91 Random Glucose Calcium Total Bilirubin AST ALT Alkaline Phosphatase Ammonia < 8.7 L Total Protein Albumin Globulin Albumin/Globulin Ratio 03/06/17 03/07/17 03/07/17 22:00 05:50 05:50 WBC 9.0 RBC 3.79 L Hgb 12.1 Hct 37.2 MCV 98.2 H MCH 31.9 MCHC 32.5 RDW 16.0 H Plt Count 176 MPV 10.2 Gran % 75.0 Lymphocytes % 13.9 L Monocytes % 8.6 Eosinophils % 2.3 Basophils % 0.2 Sodium 129 L Potassium 4.3 Chloride 95 L Carbon Dioxide 24.7 Anion Gap 9.3 BUN 53 H Creatinine 2.4 H Estimated GFR 20 POC Glucose 117 H Random Glucose 84 Calcium 9.5 Total Bilirubin 1.45 H AST 22 ALT 32 Alkaline Phosphatase 89 Ammonia Total Protein 6.2 L Albumin 2.9 L Globulin 3.3 Albumin/Globulin Ratio 0.9 L DVT/PE Assessment - Risk for VTE Risk for VTE: No Risk Level: High Risk Assessment Date: 03/06/17 Risk Assessment Time: 18:43 VTE Orders Placed or Will Be Placed: Yes - Active Medicaitons Current Medications: Current Medications Acetaminophen (Tylenol 500mg Tab) 500 mg PO Q6H PRN PRN Reason: PAIN/TEMP Last Admin: 03/06/17 05:48 Dose: 500 mg Amiodarone HCl (Pacerone) 200 mg PO DAILY [facility] Last Admin: 03/06/17 10:40 Dose: 200 mg Aspirin (Ecotrin (Ec)) 81 mg PO DAILY [facility] Last Admin: 03/06/17 10:28 Dose: 81 mg Atorvastatin Calcium (Lipitor) 20 mg PO DAILY [facility] Last Admin: 03/06/17 10:28 Dose: 20 mg Diphenhydramine HCl (Benadryl Capsule) 25 mg PO Q6H PRN PRN Reason: ITCHING Furosemide (Lasix) 20 mg PO DAILY [facility] Last Admin: 03/06/17 13:35 Dose: 20 mg Insulin Detemir (Levemir Flextouch) 12 unit SQ QD [facility] Last Admin: 03/06/17 10:40 Dose: Not Given Isosorbide Mononitrate (Imdur) 30 mg PO DAILY [facility] Last Admin: 03/06/17 11:51 Dose: Not Given Levothyroxine S[facility] ([facility]th[facility]) [facility] Last Admin: 03/07/17 06:31 Dose: 100 mcg Morphine Sulfate (Morphine Sulfate) 2 mg IVP Q4HR PRN PRN Reason: Analgesia Stop: 03/13/17 03:24 Last Admin: 03/06/17 04:26 Dose: 2 mg Non-Formulary Medication (Insulin Aspart [Novolog]) 4 unit SQ 1715 PRN PRN Reason: Hyperglycemica Ondansetron HCl (Zofran) 4 mg IVP Q4H PRN PRN Reason: NAUSEA Last Admin: 03/06/17 10:47 Dose: 4 mg Polyethylene Glycol (Miralax) 17 gm PO DAILY [facility] Last Admin: 03/06/17 10:28 Dose: 17 gm Spironolactone (Aldactone) 25 mg PO BID [facility] Last Admin: 03/06/17 23:20 Dose: Not Given AMI Plan - Labs Result Diagrams: 03/07/17 05:50 03/07/17 05:50
[2017-03-07] MEDS: ACETAMINOPHEN 500 MG TABLET PO PRN (09:22)
[2017-03-07] MEDS: AMIODARONE HCL 200 MG TABLET PO SCH (09:22)
[2017-03-07] MEDS: LEVEMIR FLEXTOUCH 100 UNIT/ML INSULIN PEN SQ SCH (09:27)
[2017-03-08] MEDS: APIXABAN 5MG TABLET PO SCH ×3 (00:18→22:50)
[2017-03-08] MEDS: ACETAMINOPHEN 500 MG TABLET PO PRN (06:21)
[2017-03-08] MEDS: LEVOTHYROXINE SODIUM 100 MCG TABLET PO SCH (06:21)
[2017-03-08 06:40] LABS: BASO % 0.2 % (0-6); EOS % 2.8 % (0-6); GRAN % 73.4 % (47-80); HEMATOCRIT 36.8 % (35.0-47.0); LYMPH % 13.3 % (16-45); MEAN CELL VOLUME 97.9 fl (81-97); MEAN CORPUSCULAR HEMOGLOBIN 31.9 pg (27-33); MEAN CORPUSCULAR HGB CONC 32.6 g/dl (32-36); MEAN PLATELET VOLUME 9.8 fl (7.4-10.4); MONO % 10.3 % (0-9); PLATELET COUNT 180 K/uL (130-400); RED BLOOD COUNT 3.76 M/uL (3.80-5.40); RED CELL DISTRIBUTION WIDTH 16.2 % (11.5-14.5); WHITE BLOOD COUNT W/O DIFF 9.6 K/uL (4.2-12.2)
[2017-03-08] MEDS: MORPHINE SULFATE 5 MG/ML PFS IVP PRN (06:46)
[2017-03-08 06:55] LABS: ALB/GLOB RATIO 0.9 (1.1-1.8); ANION GAP 10.5 (7-16); BILIRUBIN,TOTAL 1.33 mg/dL (0.2-1.3); CARBON DIOXIDE 24.5 mmol/L (22-30); CREATININE 2.6 mg/dL (0.52-1.04); TOTAL PROTEIN 6.4 gm/dL (6.3-8.2)
--- NOTE | 2017-03-08 07:29 | RADIOLOGY REPORT ---
EXAM: LEFT SHOULDER HISTORY: LEFT SHOULDER PAIN STATUS POST FALL ONE WEEK AGO. TECHNIQUE: Three views of the left shoulder were obtained. Comparison: 10/29/15. FINDINGS: The bones are diffusely osteopenic. There are moderate to severe arthritic changes of the acromioclavicular joint. There are mild arthritic changes of the glenohumeral joint. There is no visible acute fracture or dislocation. The visualized ribs appear intact. A pacemaker is present. IMPRESSION: 1. NO ACUTE LEFT SHOULDER PATHOLOGY IDENTIFIED. 2. MODERATE TO SEVERE ARTHRITIC CHANGES OF THE ACROMIOCLAVICULAR JOINT. JOB NUMBER: [id number] [facility]
--- NOTE | 2017-03-08 07:34 | CT SCAN REPORT ---
EXAM: CT SCAN OF THE BRAIN WITHOUT CONTRAST HISTORY: PATIENT FELL ONE WEEK AGO AND HIT THE HEAD. ABRASION. PERSISTENT NECK PAIN AND LEFT SHOULDER PAIN. TECHNIQUE: Standard CT imaging of the brain was performed in the axial plane without contrast. Comparison: 12/04/16. Encounter: Initial. Hand dominance: Right. FINDINGS: There is mild generalized atrophy. Moderate chronic small vessel ischemic changes are present within the periventricular and subcortical white matter of both cerebral hemispheres and appear stable. There is no mass, mass effect, intracranial hemorrhage, visible acute infarct, or abnormal extraaxial fluid. The skull is intact. The orbits, sinuses, and mastoids are unremarkable. IMPRESSION: 1. NO ACUTE INTRACRANIAL ABNORMALITY OR SKULL FRACTURE. 2. STABLE ATROPHY AND CHRONIC SMALL VESSEL ISCHEMIC CHANGES. JOB NUMBER: [id number] [facility]
--- NOTE | 2017-03-08 07:39 | CT SCAN REPORT ---
EXAM: CT SCAN OF THE CERVICAL SPINE WITHOUT CONTRAST HISTORY: FELL ONE WEEK AGO AND HIT THE BACK OF THE HEAD. PERSISTENT NECK PAIN AND LEFT SHOULDER PAIN. TECHNIQUE: Standard CT imaging of the cervical spine was performed in the axial plane without contrast. Comparison: 12/04/16. Encounter: Initial. FINDINGS: There is mild straightening of the cervical lordosis which is unchanged. The craniocervical and cervicothoracic junctions are normal. There are moderate arthritic changes at the atlantodental articulation with mild pannus formation. Degenerative disk disease and facet arthropathy are present throughout the cervical spine and are greatest at the C5 through C7 levels. There is minor anterolisthesis of C4 on C5 and C5 on C6 which appear unchanged from the previous examination. There is no acute fracture, subluxation, or prevertebral soft tissue swelling. There is borderline central canal stenosis at the C5-C6 and C6-C7 levels. Mild neural foraminal narrowing is present throughout. The neck soft tissues appear within normal limits. Mild pleural and parenchymal scarring are present at the lung apices. IMPRESSION: 1. STABLE MULTILEVEL DEGENERATIVE DISK DISEASE AND FACET ARTHROPATHY. 2. NO ACUTE CERVICAL SPINE PATHOLOGY. JOB NUMBER: [id number] [facility]
--- NOTE | 2017-03-08 08:29 | Physician Progress Note ---
Subjective - Date Date of Physician Progress Note: 03/08/17 - Subjective Subjective Comment: 03/08/17- patient states she continues to feel better. shoulder pain well controlled. has not had BM since ED. had pt/ot today. Objective - Vital Signs Vital Signs: Vital Signs - Last 24 Hrs Temp Pulse Resp BP BP Pulse Ox 03/08/17 04:39 97.8 F 108 H 18 103/70 95 03/07/17 20:53 97.5 F L 99 H 18 101/65 92 L 03/07/17 15:00 97.6 F 101 H 16 85/62 95 03/07/17 09:00 110 H 18 - General General Appearance: Alert, Cooperative, No acute distress Limitations: Altered mental status (chronic dementia; son states she is at her baseline) - Head Head exam: Atraumatic, Normocephalic, Normal inspection - Eye Eye exam: Normal appearance, PERRL - Neck Neck exam: Normal inspection, Full ROM. negative: Tenderness - Respiratory Respiratory exam: Normal lung sounds bilaterally. negative: Respiratory distress - Cardiovascular Cardiovascular Exam: Regular rate, Normal rhythm, Normal heart sounds. negative : Diastolic murmur, Systolic murmur - GI/Abdominal GI/Abdominal exam: Soft, Normal bowel sounds, Distended (soft; no tenderness to light/deep palpation. no fluid wave. bruise of rlq from paracentesis ). negative: Guarding, Rebound, Rigid, Tenderness - Extremities Extremities exam: Normal inspection, Tenderness (There is mild L shoulder tenderness.). negative: Full ROM Assessment and Plan - Assessment and Plan (1) Cirrhosis of liver with ascites Current Visit: Yes Status: Acute Base Code: K74.60 - UNSPECIFIED CIRRHOSIS OF LIVER Comment: 03/08/17- stable. wbc remains 9. not having any abdominal pain or tenderness. patient underwent paracentesis on 03/04 at [facility]. requested records but have not obtained yet. patient is afebrile. ammonia wnl -requested the [facility] paracentesis report -saline lock and 2L fluid restricted diet -continue lasix and aldactone for ascites -may consider abdominal ultrasound if distension progresses (2) Weakness Current Visit: Yes Status: Acute Base Code: R53.1 - WEAKNESS Comment: - improving. likely chronic with acute worsening following recent hospitalizations and electrolyte abnormalities. - pt/ot evaluation done today - Social Work consulted and will be dicsussing discharge options with family. feel patient needs direct supervision either at home or needs to be in an assisted living facility. (3) Hypothyroidism Current Visit: Yes Status: Acute Qualifiers: Hypothyroidism type: other Qualified Code(s): E03.8 - Other specified hypothyroidism Base Code: E03.9 - HYPOTHYROIDISM, UNSPECIFIED Comment: 03/08/17- TSH elevated at 28 at admission. 2/2 poor medication compliance. Her undertreated hypothyroidism is likely causing fatigue, constipation, cold intolerance. -Will re-start her synthroid at 100mcg daily 30 mintues prior to meals. -she will need follow up with her pcp to re-check TSH in 4-6 weeks (4) Renal insufficiency Current Visit: Yes Status: Acute Base Code: N28.9 - DISORDER OF KIDNEY AND URETER, UNSPECIFIED Comment: 03/08/17- Stable. BUN and Cr are stable at 57/2.6 wiith eGFR of 19. -will saline lock to avoid fluid overload -recheck labs qam (5) Electrolyte abnormality Current Visit: Yes Status: Acute Base Code: E87.8 - OTH DISORDERS OF ELECTROLYTE AND FLUID BALANCE, NEC Comment: 03/08/17- sodium up to 130 today. had been chronically hyponatremic around 132 based on previous visits. Patient is high risk for fluid overload with cirrhosis and CKD. I do not believe any of her current symptoms are related to hyponatremia so will try and let it naturally correct. -will encourage oral fluid intake up to 2L -continue to saline lock -rechecklabs qam (6) Shoulder pain Current Visit: Yes Status: Acute Base Code: M25.519 - PAIN IN UNSPECIFIED SHOULDER Comment: 03/08/17- patient had fall on 03/01 the day she was discharged from [facility]. was seen in [facility] ED on 03/03 and had negative imaging of neck and shoulder at that time. Had repeat imaging done here which confirms previous results. patient reports her pain is now controlled for the first time this week. -will do trial of tramadol for pain controll with cirrhosis and CKD would like to avoid NSAID/acetaminophin (7) Dementia Current Visit: Yes Status: Acute Qualifiers: Dementia type: unspecified type Dementia behavioral disturbance: without behavioral disturbance Qualified Code(s): F03.90 - Unspecified dementia without behavioral disturbance Base Code: F03.90 - UNSPECIFIED DEMENTIA WITHOUT BEHAVIORAL DISTURBANCE Comment: 03/08/17- chronic dementia. Son stated yesterday she was at her baseline. -continue to monitor for acute changes (8) DNR (do not resuscitate) Current Visit: Yes Status: Acute Base Code: Z66 - DO NOT RESUSCITATE Comment: 03/08/17- patient is dnr (9) DVT prophylaxis Current Visit: No Status: Acute Base Code: [id number] - Comment: 03/08/17- patient high risk with age and h/o p. afib. had been on eliquis which was stopped for paracentesis done on 03/04. requested procedure notes from that to see when they ahd wanted her to resume eliquis which I did not receive. - eliquis 5mg po bid Results - Labs Result Diagrams: 03/08/17 06:15 03/08/17 06:15 Labs Last 24 Hours: Laboratory Results - last 24 hr 03/08/17 03/08/17 06:15 06:15 WBC 9.6 RBC 3.76 L Hgb 12.0 Hct 36.8 MCV 97.9 H MCH 31.9 MCHC 32.6 RDW 16.2 H Plt Count 180 MPV 9.8 Gran % 73.4 Lymphocytes % 13.3 L Monocytes % 10.3 H Eosinophils % 2.8 Basophils % 0.2 Sodium 130 L Potassium 4.3 Chloride 95 L Carbon Dioxide 24.5 Anion Gap 10.5 BUN 57 H Creatinine 2.6 H Estimated GFR 19 Random Glucose 115 H Calcium 9.5 Total Bilirubin 1.33 H AST 21 ALT 28 Alkaline Phosphatase 109 Total Protein 6.4 Albumin 3.0 L Globulin 3.4 Albumin/Globulin Ratio 0.9 L DVT/PE Assessment - Risk for VTE Risk for VTE: No Risk Level: High Risk Assessment Date: 03/06/17 Risk Assessment Time: 18:43 VTE Orders Placed or Will Be Placed: Yes - Active Medicaitons Current Medications: Current Medications Acetaminophen (Tylenol 500mg Tab) 500 mg PO Q6H PRN PRN Reason: PAIN/TEMP Last Admin: 03/08/17 06:21 Dose: 500 mg Amiodarone HCl (Pacerone) 200 mg PO DAILY [facility] Last Admin: 03/07/17 09:22 Dose: 200 mg Apixaban (Eliquis) 5 mg PO BID [facility] Last Admin: 03/08/17 00:18 Dose: 2.5 mg Aspirin (Ecotrin (Ec)) 81 mg PO DAILY [facility] Last Admin: 03/07/17 09:20 Dose: 81 mg Atorvastatin Calcium (Lipitor) 20 mg PO DAILY [facility] Last Admin: 03/07/17 09:21 Dose: 20 mg Diphenhydramine HCl (Benadryl Capsule) 25 mg PO Q6H PRN PRN Reason: ITCHING Last Admin: 03/08/17 02:01 Dose: 25 mg Furosemide (Lasix) 20 mg PO DAILY [facility] Last Admin: 03/07/17 09:21 Dose: 20 mg Insulin Detemir (Levemir Flextouch) 12 unit SQ QD [facility] Last Admin: 03/07/17 09:27 Dose: Not Given Isosorbide Mononitrate (Imdur) 30 mg PO DAILY [facility] Last Admin: 03/07/17 09:21 Dose: 30 mg Levothyroxine Sodium (Synthroid) 100 mcg PO DAILYTHY [facility] Last Admin: 03/08/17 06:21 Dose: 100 mcg Morphine Sulfate (Morphine Sulfate) 2 mg IVP Q4HR PRN PRN Reason: Analgesia Stop: 03/13/17 03:24 Last Admin: 03/08/17 06:46 Dose: 2 mg Ondansetron HCl (Zofran) 4 mg IVP Q4H PRN PRN Reason: NAUSEA Last Admin: 03/06/17 10:47 Dose: 4 mg Polyethylene Glycol (Miralax) 17 gm PO DAILY [facility] Last Admin: 03/07/17 09:21 Dose: 17 gm Spironolactone (Aldactone) 25 mg PO BID [facility] Last Admin: 03/07/17 21:43 Dose: 25 mg AMI Plan - Labs Result Diagrams: 03/08/17 06:15 03/08/17 06:15
[2017-03-08] MEDS: SPIRONOLACTONE 25 MG TAB PO SCH ×2 (09:49→22:50)
[2017-03-08] MEDS: ASPIRIN 81 MG TABEC PO SCH (09:49)
[2017-03-08] MEDS: ISOSORBIDE MONONITRATE 30 MG TAB.ER.24H PO SCH (09:51)
[2017-03-08] MEDS: FUROSEMIDE 20 MG TABLET PO SCH (09:52)
[2017-03-08] MEDS: POLYETHYLENE GLY 17 GM PACKET PO SCH (09:53)
[2017-03-08] MEDS: ATORVASTATIN 20 MG TABLET PO SCH (09:53)
[2017-03-08] MEDS: AMIODARONE HCL 200 MG TABLET PO SCH (09:54)
[2017-03-08] MEDS: LEVEMIR FLEXTOUCH 100 UNIT/ML INSULIN PEN SQ SCH (10:00)
--- NOTE | 2017-03-08 10:35 | Rehab Evaluation ---
Patient Information - Patient Information Diagnosis: left shoulder and neck pain Ordered Treatment: PT Evaluate and Treat Status: Initial Evaluation History: Detail (The patient presented in ED with L shoulder and neck pain.) Past Medical/Surgical Hx: PAST MEDICAL/SURGICAL HISTORY Past Surgical History Hysterectomy C section Left Knee Replacement Bunionectomy Carpal tunnel cardiac stents ovarian cardiac stents x2 5-2015 Cataracts Arm Cyst removal bladder lift pacemaker PMH - Respiratory Hx Respiratory Disorders No Hx Bronchitis Yes: hx of PMH - Cardiovascular Hx Cardiovascular Disorders Yes Hx Hypertension Yes Hx Irregular Heartbeat Yes Hx Pacemaker/Defibrillator Yes Hx Coronary Stent Yes Comment: MVP, cardioversion for afib PMH - Neuro Hx Neurological Disorders No Hx Weakness Yes: gereralized PMH - GI Hx Gastrointestinal Disorders Yes Hx Nausea/Vomiting Yes: all the time from meds Hx Weight Loss/Weight Gain Yes Comment: hx retirement constipation PMH - Hx Genitourinary Disorders No PMH - Endocrine Hx Endocrine Disorders Yes Hx Diabetes Yes PMH - Musculoskeletal Hx Musculoskeletal Disorders Yes Hx Arthritis Yes PMH - Psych Hx Psychiatric Problems No PMH - Hematology/Oncology Hx Hematology/Oncology No Disorders Hx Bruising Yes: on eliquis Hx Cancer Yes: skin Hx Blood Transfusion Reaction No Premorbid Status: Detail (Per her report the patient was ambulatory with a 4 wheeled walker with a seat and required assist with housekeeping and ADL's.) Social History: Detail (The patient lives with spouse in a one story home with basement with a lift at the enterance. The patient reports her bathroom has a regular tub with shower with a shower seat.) Precautions: [place], Fall - Time With Patient Total Time Spent With Patient (Min): 30 Treatment Procedures: Detail (PT intitial evaluation.) Subjective Information - Subjective Information Per Patient (The patient had complaints of L shoulder pain radiating into her neck which was level 0 at rest but increased with ambulation with UE weight bearing on walker.) Objective Data - Mental Status Patient Orientation: Oriented x3 - ROM Not within normal limits (The patient's LE AROM was WNL . Refer to OT note for UE AROM limitations ( the patient did present with moderate bilateral shoulder ROM deficits.) - Strength/Tone Not within normal limits (The patient's LE strength was generally 4+ to 5/5 throughout.) - Bed Mobility Needs Assist (The patient required minimal PA of 1 with supine to sit with upper body and minimal PA of 1 lifting LE's with sit to supine. The patient required moderate PA of 1 scooting up in bed.) - Transfers Independent, Needs Assist (The patient acheived sit to and from stand transfer independently with verbal cues to push up and reach for the surface.) - Balance Balance Sitting: Fair (The patient was able to sit without support, however with UE and LE movement the patient tended to lean back.) Balance Standing: Fair (The patient requires support of walker , however the patient was able to balance briefly without support.) - Gait Detail (The patient ambulated with 2 wheeled walker a distance of 30 feet x 1 with CG of 1. The patient's ambulation was limited due to complaints of L shoulder pain.) Therapy Assessment - Therapy Assessment Detail (The patient required assistance with bed mobility, exhibited L shoulder pain with activity decreased balance in sitting and standing and decreased ability to complete sustained physical activity. Feel the patient would benefit from ongoing PT to return to previous function level. Upon discharge from [facility], feel the patient may benefit from ongoing therapy in a home or subacute rehab setting.) Problem List - Problem List Physical Therapy Problem List: Detail (1) Decreased balance in sitting and standing 2) Assistance with bed mobility 3) Decreased ambulation distance and gaurding for safety 4) Decreased ability to complete prolonged physical acitivities.) Goals - Goals Physical Therapy Goals: 1) The patient will be independent with bed mobility. 2 ) The patient will ambulate with assistive device a distance of 150 feet plus with supervision. 3) Formally assess the patient's balance using standardized balance scale. 4)The patient will be independent and safe with all transfers. Prognosis - Prognosis Good Plan - Plan Physical Therapy Plan: PT daily for gait training, bed mobility, transfer training, balance and muscular endurance exercises.
--- NOTE | 2017-03-08 11:01 | Rehab Evaluation ---
Patient Information - Patient Information Diagnosis: inability to walk, hypothyroidism, renal insufficiency Ordered Treatment: OT Evaluate and Treat Status: Initial Evaluation Surgery: No History: Detail (Pt admitted from ED with c/o left shoulder and neck pain due to a fall.) Past Medical/Surgical Hx: PAST MEDICAL/SURGICAL HISTORY Past Surgical History Hysterectomy C section Left Knee Replacement Bunionectomy Carpal tunnel cardiac stents ovarian cardiac stents x2 5-2016 Cataracts Arm Cyst removal bladder lift pacemaker PMH - Respiratory Hx Respiratory Disorders No Hx Bronchitis Yes: hx of PMH - Cardiovascular Hx Cardiovascular Disorders Yes Hx Hypertension Yes Hx Irregular Heartbeat Yes Hx Pacemaker/Defibrillator Yes Hx Coronary Stent Yes Comment: MVP, cardioversion for afib PMH - Neuro Hx Neurological Disorders No Hx Weakness Yes: gereralized PMH - GI Hx Gastrointestinal Disorders Yes Hx Nausea/Vomiting Yes: all the time from meds Hx Weight Loss/Weight Gain Yes Comment: hx residential constipation PMH - Hx Genitourinary Disorders No PMH - Endocrine Hx Endocrine Disorders Yes Hx Diabetes Yes PMH - Musculoskeletal Hx Musculoskeletal Disorders Yes Hx Arthritis Yes PMH - Psych Hx Psychiatric Problems No PMH - Hematology/Oncology Hx Hematology/Oncology No Disorders Hx Bruising Yes: on eliquis Hx Cancer Yes: skin Hx Blood Transfusion Reaction No Premorbid Status: Detail (Pt lives with spouse and granddaughter in a 1 story house and a lift at the entrance. She reports her spouse helps her with showering and dressing as well as meal prep and home mgmt. She has a tub/ shower combination with a seat. Per her report the patient was ambulatory with a 4 wheeled walker with a seat.) Social History: Detail (Supportive spouse and grand daughter.) Precautions: [place], Fall, Other (DNR) - Time With Patient Total Time Spent With Patient (Min): 40 Treatment Procedures: Detail (OT eval moderate complexity) Subjective Information - Subjective Information Per Patient Objective Data - Pain Pain Present: Yes (Pt reports her pain is currently 0/10 but her left shoulder and neck have been very painful.) - Mental Status Patient Orientation: Oriented x3 - Visual Perception Appears within normal limits for therapeutic activities (Pt reports she wears glasses for distance but does not have them at the hospital.) - ROM Not within normal limits (Benitez shoulder motion significantly impaired, left worse than right. Benitez elbow, wrist and hand AROM WNL.) - Strength/Tone Not within normal limits (Benitez shoulder strength 3-/5, benitez elbow and second rigger strength 4/5.) - Coordination Appears within normal limits for therapeutic activities - Bed Mobility Needs Assist (Min assist for supine to sit and for sit to supine, and mod assist to scoot up in bed.) - Transfers Needs Assist (CG assist for sit to stand from EOB.) - Balance Balance Sitting: Fair (Pt leaning to the rear when sitting at EOB.) Balance Standing: Fair - Sensation Intact - Gait Detail (Pt amb into hallway with 2 wheeled walker and CG assist.) - ADL's/IADL's Detail (Pt reports nursing is assisting with all self cares and toileting.) Therapy Assessment - Therapy Assessment Detail (Pt presents with decreased shoulder ROM and strength, decreased endurance and decreased Ind with self care activities.) Problem List - Problem List Occupational Therapy Problem List: Detail (1. Decreased shoulder AROM and strength. 2. Left shoulder and neck pain 3. Decreased Ind with self care activities.) Goals - Goals Occupational Therapy Goals: 1. Pt will participate in benitez UE AROM and strengthening activities to increase functional use. 2. Pt will complete self care activities with minimal assist. Prognosis - Prognosis Good Plan - Plan Occupational Therapy Plan: OT 1-4 days per week to address UE function, self cares and endurance needed for safe return home with family.
[2017-03-08] MEDS: TRAMADOL HCL 50 MG TABLET PO PRN (15:19)
[2017-03-09] MEDS: TRAMADOL HCL 50 MG TABLET PO PRN (03:50)
[2017-03-09] MEDS: LEVOTHYROXINE SODIUM 100 MCG TABLET PO SCH (06:06)
[2017-03-09 06:41] LABS: BASO % 0.2 % (0-6); GRAN % 80.3 % (47-80); HEMATOCRIT 37.4 % (35.0-47.0); HEMOGLOBIN 12.2 gm/dl (11.6-16.0); LYMPH % 8.6 % (16-45); MEAN CELL VOLUME 97.7 fl (81-97); MEAN CORPUSCULAR HEMOGLOBIN 31.9 pg (27-33); MEAN CORPUSCULAR HGB CONC 32.6 g/dl (32-36); MEAN PLATELET VOLUME 9.6 fl (7.4-10.4); MONO % 8.9 % (0-9); PLATELET COUNT 177 K/uL (130-400); RED BLOOD COUNT 3.83 M/uL (3.80-5.40); RED CELL DISTRIBUTION WIDTH 16.1 % (11.5-14.5)
[2017-03-09 06:59] LABS: ALB/GLOB RATIO 0.9 (1.1-1.8); ALBUMIN 2.9 gm/dL (3.5-5.0); ANION GAP 9.1 (7-16); BILIRUBIN,TOTAL 1.3 mg/dL (0.2-1.3); CARBON DIOXIDE 22.9 mmol/L (22-30); CREATININE 2.6 mg/dL (0.52-1.04)
[2017-03-09] MEDS: ATORVASTATIN 20 MG TABLET PO SCH (09:31)
[2017-03-09] MEDS: AMIODARONE HCL 200 MG TABLET PO SCH (09:31)
[2017-03-09] MEDS: APIXABAN 5MG TABLET PO SCH (09:31)
[2017-03-09] MEDS: LEVEMIR FLEXTOUCH 100 UNIT/ML INSULIN PEN SQ SCH (09:31)
[2017-03-09] MEDS: FUROSEMIDE 20 MG TABLET PO SCH (09:32)
[2017-03-09] MEDS: POLYETHYLENE GLY 17 GM PACKET PO SCH (09:32)
[2017-03-09] MEDS: ASPIRIN 81 MG TABEC PO SCH (09:32)
[2017-03-09] MEDS: SPIRONOLACTONE 25 MG TAB PO SCH (09:32)
[2017-03-09] MEDS: ISOSORBIDE MONONITRATE 30 MG TAB.ER.24H PO SCH (09:32)
--- NOTE | 2017-03-09 13:44 | Physical Therapy Tx Note ---
Physical Therapy Tx Note - Treatment Note Tolerated: Good, Fair Total Time Spent With Patient: 25 Physical Therapy Tx Note: Detail (Pt was supine resting in bed upon arrival. Pt declined doing therapy today but after talking with her she agreed to do some bed mobility and walking. Pt denied pain but states she feels weak and tired. Pt transferred supine to sit with mod assist x 1. Pt was able to sit at edge of bed and do mobility with verbal cueing and direction. Pt instructed in proper sit to stand technique and completed that task x 3 with consistant verbal cueing for proper technique. Pt ambulated with wheeled walker, and contact guard assist x 50 ft. Pt returned to room and with verbal cueing returned to bed with min assist x 1 and followed directions well with bed transition to reposition in bed appropriately for comfort. Pt states tired after treatment but states feels "better after getting up and out of bed". Pt to possibly be discharged to rehab facility this afternoon depending on availability. If patient remains, continue to strengthen and gait.) Physical Therapy Problem List: Detail (1) Decreased balance in sitting and standing 2) Assistance with bed mobility 3) Decreased ambulation distance and gaurding for safety 4) Decreased ability to complete prolonged physical acitivities.) Physical Therapy Goals: 1) The patient will be independent with bed mobility. 2 ) The patient will ambulate with assistive device a distance of 150 feet plus with supervision. 3) Formally assess the patient's balance using standardized balance scale. 4)The patient will be independent and safe with all transfers. Prognosis: Good Physical Therapy Plan: PT daily for gait training, bed mobility, transfer training, balance and muscular endurance exercises.
--- NOTE | 2017-03-09 14:08 | Discharge Summary ---
Providers Discharge Summary Date: 03/09/17 Date of admission: 03/06/17 03:32 Expected Date of Discharge: 03/09/17 Attending physician: ANUJA MCKEON Primary care physician: TOÑO GRAY D.O. Physical Exam - Vital Signs Vital Signs: Vital Signs - Last 24 Hrs Temp Pulse Resp BP Pulse Ox 03/09/17 10:00 97.5 F L 103 H 14 99/63 92 L 03/09/17 09:00 103 H 14 03/08/17 21:00 18 03/08/17 20:00 97.5 F L 102 H 18 87/55 92 L 03/08/17 17:49 97.3 F L 105 H 16 91/58 92 L - General General Appearance: No acute distress, Other (pale, thin, elederly) Limitations: Altered mental status (chronic dementia; son states she is at her baseline) - Head Head exam: Atraumatic, Normocephalic, Normal inspection - Eye Eye exam: Normal appearance, PERRL - Neck Neck exam: Normal inspection, Full ROM. negative: Tenderness - Respiratory Respiratory exam: Normal lung sounds bilaterally. negative: Respiratory distress - Cardiovascular Cardiovascular Exam: Regular rate, Normal rhythm, Normal heart sounds. negative : Diastolic murmur, Systolic murmur - GI/Abdominal GI/Abdominal exam: Soft, Normal bowel sounds, Distended (soft; no tenderness to light/deep palpation. no fluid wave. bruise of rlq from paracentesis ). negative: Guarding, Rebound, Rigid, Tenderness - Extremities Extremities exam: Normal inspection, Tenderness (There is mild L shoulder tenderness.). negative: Full ROM Hospitalization - Hospitalization Admission Diagnosis: 1. Inability to Walk with Hypothyroidism and Renal Insuffiency. - Problem List/Discharge Diagnosis (1) Cirrhosis of liver with ascites Current Visit: Yes Status: Acute Base Code: K74.60 - UNSPECIFIED CIRRHOSIS OF LIVER Comment: 03/09/17- stable. wbc remains 10. not having any abdominal pain or tenderness. patient underwent paracentesis on 03/04 at [facility]. requested records but have not obtained yet. patient is afebrile. ammonia wnl -requested [facility] [place] paracentesis report -saline lock and 2L fluid restricted diet -continue lasix and aldactone for ascites -will need PRN paracentesis (2) DNR (do not resuscitate) Current Visit: Yes Status: Acute Base Code: Z66 - DO NOT RESUSCITATE Comment: 03/09/17- patient is dnr (3) Dementia Current Visit: Yes Status: Acute Discharge Diagnosis: Dementia type: unspecified type Dementia behavioral disturbance: without behavioral disturbance Qualified Code(s): F03.90 - Unspecified dementia without behavioral disturbance Base Code: F03.90 - UNSPECIFIED DEMENTIA WITHOUT BEHAVIORAL DISTURBANCE Comment: 03/09/17- chronic dementia. Son stated yesterday she was at her baseline. -continue to monitor for acute changes (4) Electrolyte abnormality Current Visit: Yes Status: Acute Base Code: E87.8 - OT DISORDERS OF ELECTROLYTE AND FLUID BALANCE, NEC Comment: 03/09/17- sodium up to 129 today. had been chronically hyponatremic around 132 based on previous visits. Patient is high risk for fluid overload with cirrhosis and CKD. -will encourage oral fluid intake up to 1800- 2000ml -continue to saline lock -recheck labs daily to weekly (5) Hypothyroidism Current Visit: Yes Status: Acute Discharge Diagnosis: Hypothyroidism type: other Qualified Code(s): E03.8 - Other specified hypothyroidism Base Code: E03.9 - HYPOTHYROIDISM, UNSPECIFIED Comment: 03/09/17- TSH elevated at 28 at admission. 2/2 poor medication compliance. Her undertreated hypothyroidism is likely causing fatigue, constipation, cold intolerance. -Will re-start her synthroid at 100mcg daily 30 mintues prior to meals. -she will need follow up with her pcp to re-check TSH in 4-6 weeks (6) Renal insufficiency Current Visit: Yes Status: Acute Base Code: N28.9 - DISORDER OF KIDNEY AND URETER, UNSPECIFIED Comment: 03/09/17- Stable. BUN and Cr are stable at 57/2.6 wiith eGFR of 19. -will saline lock to avoid fluid overload -recheck labs qam (7) Ascites Current Visit: No Status: Acute Discharge Diagnosis: Ascites type: other type Qualified Code(s): R18.8 - Other ascites Base Code: R18.8 - OTHER ASCITES (8) Atrial fibrillation Current Visit: No Status: Acute Discharge Diagnosis: Atrial fibrillation type: chronic Qualified Code(s): I48.2 - Chronic atrial fibrillation Base Code: I48.91 - UNSPECIFIED ATRIAL FIBRILLATION - Hospitalization Course Disposition: [facility] Hospital Course: H&P 86yo female with CC of shoulder and neck pain. She has a history of dementia, CAD, diabetes, sick sinus syndrome with pacemaker placement, paroxysmal afib, cirrhosis of the liver with ascites, CKD, hypothyroidism, hyperlipidemia and hypertension. Patient was brought to the ED by ambulance for left shoulder pain. She had a reported fall on 03/01/17 after being discharged from [facility]. While in the ED, patient had head Ct which was negative for acute changes, Cervical CT which was negative for fracture and left shoulder XR negative for fracture. CMP showed CKD stable. TSH was elevated at 28. patient complained of constipation which resolved after having a large BM from fleets enema. She was admitted for intractable pain, recent falls, electrolyte abnormalities. 03/06/17- patient resting comfortably in bed. Says this is the first time all week she has been out of pain. states she has not been sleeping at all this week. patient is oriented to person and place but not to time. Both patient and her have memory deficits and they live with their granddaughter who has muscular dystrophy. Patient currently denies abdominal pain, swelling, neck or shoulder pain, or headache. Requested records from [facility] since patient was recently admitted there. She had been to our ED on 02/27 and found to have ascites which is new for her. She was transferred and admitted to [facility]. She was unable to have paracentesis during admission due to taking eliquis and needed to be off of that for at least 3 days prior. her labs during that stay were simlar to today with slight WBC elevation, Cr of 2.55. She was discharged home on 03/01 and actually fell while trying to get in to her house after being discharged. She was seen at [facility] ED on 03/03 for her neck and shoulder pain and had negative CT and XR done at that time as well. she was discharged home with a cspine collar for sprain. both patient and her had completely forgotten about that visit to the ED. When patient was discharged from [facility] on 03/01 she was to hold eliquis and start cipro 500mg daily for SB prophylaxis. Patient and son confirm she had paracentesis on 03/04. She has not restarted her eliquis and has not had further cipro. Patient's son admits his mother is probably not capable of setting up her home medications and isn't sure if she has been taking everything. 03/08/17- TSH elevated at 28 at admission. 2/2 poor medication compliance. Her undertreated hypothyroidism is likely causing fatigue, constipation, cold intolerance. -Will re-start her synthroid at 100mcg daily 30 mintues prior to meals. -she will need follow up with her pcp to re-check TSH in 4-6 weeks pcp: claudette Procedures: Imaging and X-Rays 03/09/17 11:07 CHEST AP or PA ONLY [RAD] Stat Abnormal Labs: Abnormal Lab Results 03/06/17 03/06/17 03/06/17 Range/Units 05:30 05:30 14:55 WBC 13.7 H (4.2-12.2) K/uL RBC (3.80-5.40) M/uL MCV (81-97) fl RDW 15.4 H (11.5-14.5) % Gran % (47-80) % Neutrophils % 85.0 H (47-80) % Lymphocytes % 5.0 L (16-45) % Monocytes % 10.0 H (0-9) % Sodium 128 L (136-145) mmol/L Chloride 95 L (98-107) mmol/L BUN 52 H (7-17) mg/dL Creatinine 2.4 H (0.52-1.04) mg/dL POC Glucose (70-110) mg/dL Random Glucose (70-110) mg/dL Total Bilirubin (0.2-1.3) mg/dL Ammonia < 8.7 L (9-30) umol/L Total Protein (6.3-8.2) gm/dL Albumin (3.5-5.0) gm/dL Albumin/Globulin Ratio (1.1-1.8) 03/06/17 03/07/17 03/07/17 Range/Units 22:00 05:50 05:50 WBC (4.2-12.2) K/uL RBC 3.79 L (3.80-5.40) M/uL MCV 98.2 H (81-97) fl RDW 16.0 H (11.5-14.5) % Gran % (47-80) % Neutrophils % (47-80) % Lymphocytes % 13.9 L (16-45) % Monocytes % (0-9) % Sodium 129 L (136-145) mmol/L Chloride 95 L (98-107) mmol/L BUN 53 H (7-17) mg/dL Creatinine 2.4 H (0.52-1.04) mg/dL POC Glucose 117 H (70-110) mg/dL Random Glucose (70-110) mg/dL Total Bilirubin 1.45 H (0.2-1.3) mg/dL Ammonia (9-30) umol/L Total Protein 6.2 L (6.3-8.2) gm/dL Albumin 2.9 L (3.5-5.0) gm/dL Albumin/Globulin Ratio 0.9 L (1.1-1.8) 03/08/17 03/08/17 03/08/17 Range/Units 06:15 06:15 17:00 WBC (4.2-12.2) K/uL RBC 3.76 L (3.80-5.40) M/uL MCV 97.9 H (81-97) fl RDW 16.2 H (11.5-14.5) % Gran % (47-80) % Neutrophils % (47-80) % Lymphocytes % 13.3 L (16-45) % Monocytes % 10.3 H (0-9) % Sodium 130 L (136-145) mmol/L Chloride 95 L (98-107) mmol/L BUN 57 H (7-17) mg/dL Creatinine 2.6 H (0.52-1.04) mg/dL POC Glucose 145 H (70-110) mg/dL Random Glucose 115 H (70-110) mg/dL Total Bilirubin 1.33 H (0.2-1.3) mg/dL Ammonia (9-30) umol/L Total Protein (6.3-8.2) gm/dL Albumin 3.0 L (3.5-5.0) gm/dL Albumin/Globulin Ratio 0.9 L (1.1-1.8) 03/09/17 03/09/17 Range/Units 06:20 06:20 WBC (4.2-12.2) K/uL RBC (3.80-5.40) M/uL MCV 97.7 H (81-97) fl RDW 16.1 H (11.5-14.5) % Gran % 80.3 H (47-80) % Neutrophils % (47-80) % Lymphocytes % 8.6 L (16-45) % Monocytes % (0-9) % Sodium 128 L (136-145) mmol/L Chloride 96 L (98-107) mmol/L BUN 58 H (7-17) mg/dL Creatinine 2.6 H (0.52-1.04) mg/dL POC Glucose (70-110) mg/dL Random Glucose 66 L (70-110) mg/dL Total Bilirubin (0.2-1.3) mg/dL Ammonia (9-30) umol/L Total Protein 6.0 L (6.3-8.2) gm/dL Albumin 2.9 L (3.5-5.0) gm/dL Albumin/Globulin Ratio 0.9 L (1.1-1.8) Condition at Discharge: (3) Guarded Discharge Medications - Discharge Medications Home Medications: Ambulatory Orders Insulin Aspart [Novolog] 4 unit SQ 1715 PRN 03/26/14 [Last Taken 02/27/17] Insulin Glargine,Hum.rec.anlog [Lantus] 12 unit SQ QAM 03/26/14 [Last Taken ] Amiodarone HCl [Cordarone] 200 mg PO DAILY 04/07/16 [Last Taken 02/27/17] Aspirin [Adult Low Dose Aspirin EC] 81 mg PO DAILY 04/07/16 [Last Taken 02/27/17 ] Atorvastatin Calcium [Lipitor] 20 mg PO DAILY 04/07/16 [Last Taken 02/27/17] Apixaban [Eliquis] 5 mg PO BID 04/30/16 [Last Taken 02/27/17] Spironolactone [Aldactone] 25 mg PO BID 08/19/16 [Last Taken 02/26/17] Levothyroxine Sodium [Synthroid] 88 mcg PO DAILY 12/04/16 [Last Taken 02/27/17] Ciprofloxacin HCl [Cipro] 500 mg PO DAILY 03/06/17 [Last Taken Unknown] Furosemide [Lasix] 20 mg PO DAILY 03/06/17 [Last Taken Unknown] Isosorbide Mononitrate [Imdur] 30 mg PO DAILY 03/06/17 [Last Taken Unknown] Polyethylene Glycol 3350 [Miralax] 1 packet PO DAILY 03/06/17 [Last Taken Unknown] Torsemide [Demadex] 20 mg PO DAILY 03/06/17 [Last Taken Unknown] Apixaban [Eliquis] 5 mg PO BID 03/09/17 [Last Taken Unknown] Insulin Detemir [Levemir Flextouch] 12 unit SQ QD ml 03/09/17 [Last Taken Unknown] Tramadol HCl [Ultram] 50 mg PO Q8H PRN 03/09/17 [Last Taken Unknown] Discharge Plan - Discharge Instructions Activity at Discharge: Increase Activity as Tolerated Diet at Discharge: Low Salt Diet Instructions: Hypothyroidism (ED), Cervical Sprain (ED) Additional Instructions: Please take low dose Tylenol for pain and take an extra 1/2 dose of your thyroid medicine daily. Please see your PCP early next week for recheck. Return to the ER for any problems.
--- NOTE | 2017-03-09 14:19 | RADIOLOGY REPORT ---
EXAM: AP CHEST HISTORY: MCC PLACEMENT. TECHNIQUE: AP view of the chest was obtained. Comparison: Chest x-ray 01/10/17. FINDINGS: The left lung base is compromised due to poor penetration. The lungs are grossly clear. Left side pacemaker. The cardiac silhouette is markedly enlarged, but unchanged. The right hemidiaphragm is unremarkable. Osteopenia. IMPRESSION: COMPROMISED LEFT BASE DUE TO POOR PENETRATION. MARKED CARDIOMEGALY BEFORE. NO ACUTE PROCESS. JOB NUMBER: [id number] MTDD
== END 2017-03-09 15:50 | DRG 434 ==
LOC: ER 00:27 → MEDSURG 03:32
PROVIDERS: ADMIT Family Medicine; ATTEND Family Medicine
DX: K74.60 Unspecified cirrhosis of liver (principal); E03.9 Hypothyroidism, unspecified; E03.8 Other specified hypothyroidism; E78.5 Hyperlipidemia, unspecified; I48.0 Paroxysmal atrial fibrillation; Z79.01 Long term (current) use of anticoagulants; R53.1 Weakness; Z95.0 Presence of cardiac pacemaker; N28.9 Disorder of kidney and ureter, unspecified; E87.8 Other disorders of electrolyte and fluid balance, not elsewhere classified; M25.519 Pain in unspecified shoulder; F03.90 Unspecified dementia, unspecified severity, without behavioral disturbance, psychotic disturbance, mood disturbance, and anxiety; Z66 Do not resuscitate
CPT/HCPCS: 36416; 70450; 71010; 72125; 80048; 80053; 80076; 82140; 82550; 82553; 82948; 83690; 84443; 85025; 85027; 85610; 85730; 93005; 93010; 96374; 97166; 97530; 99223; 99233; 99239; 99285; J2405; J7030

== ENCOUNTER 2017-05-11 10:59 | Emergency (ER) | payer MEDICARE, BC ==
--- NOTE | 2017-05-11 11:31 | Emergency Department Record ---
History of Present Illness - General Chief Complaint: Abdominal Pain Stated Complaint: CONSTIPATION Time Seen by Provider: 05/11/17 11:14 Source: Patient, Family Mode of Arrival: Wheelchair Limitations: No limitations - History of Present Illness Initial Comments: The patient is here due to a 5 day hx of constipation and inability to have a BM. She has been nauseated for 2 days and did vomit once yesterday. She has a hx of ascites and liver dz and did have 3 liters of fluid removed from her abdomen last week by GI at [facility]. The patient denies any vomiting today and states she just feels constipated. She was here on 02/27/[address] a [address] that did demonstrate ascites and colonic constipation. She denies any fever, chills, dysuria, back pain, CP, or SOB. MD Complaint: Other Onset/Timin -: Days(s) Radiation: None Migration to: No migration Improves With: Nothing Worsens With: Nothing Associated Symptoms: Constipation, Nausea, Vomiting - Related Data Home Medications Medication Instructions Recorded Confirmed Last Taken Insulin Aspart [Novolog] 4 unit SQ 1715 PRN 03/26/14 05/11/17 02/27/17 Insulin Glargine,Hum.rec.anlog 12 unit SQ QAM 03/26/14 05/11/17 02/27/17 [Lantus] Amiodarone HCl [Cordarone] 200 mg PO DAILY 04/07/16 05/11/17 05/11/17 Aspirin [Adult Low Dose Aspirin EC] 81 mg PO DAILY 04/07/16 05/11/17 05/11/17 Spironolactone [Aldactone] 25 mg PO BID 08/19/16 05/11/17 05/11/17 Levothyroxine Sodium [Synthroid] 88 mcg PO DAILY 12/04/16 05/11/17 05/11/17 Isosorbide Mononitrate [Imdur] 10 mg PO BID 03/06/17 05/11/17 05/11/17 Torsemide [Demadex] 20 mg PO DAILY 03/06/17 05/11/17 05/11/17 Apixaban [Eliquis] 2.5 mg PO BID 05/11/17 05/11/17 05/11/17 Lactulose 10 gm PO DAILY 05/11/17 05/11/17 Unknown Previous Rx's Medication Instructions Recorded Insulin Detemir [Levemir Flextouch] 12 unit SQ QD ml 03/09/17 Tramadol HCl [Ultram] 50 mg PO Q8H PRN 03/09/17 Allergies Allergy/AdvReac Type Severity Reaction Status Date / Time codeine Allergy Unknown ALTERED Verified 05/11/17 11:07 MENTAL STATUS erythromycin base Allergy Unknown ALTERED Verified 05/11/17 11:07 MENTAL STATUS Penicillins Allergy Unknown RASH Verified 05/11/17 11:07 Sulfa (Sulfonamide Allergy Unknown RASH Verified 05/11/17 11:07 Antibiotics) shellfish derived AdvReac VOMITING Verified 05/11/17 11:07 Travel Screening - Travel/Exposure Within Last 30 Days Have you traveled within the last 30 days?: No Review of Systems Constitutional: Reports: Malaise. Denies: Chills, Fever Eyes: Denies: Eye discharge ENT: Denies: Congestion Respiratory: Denies: Cough, Dyspnea Cardiovascular: Denies: Chest pain Past Medical History - SOCIAL HISTORY Smoking Status: Never smoker Alcohol Use: None Drug Use: None - RESPIRATORY Hx Respiratory Disorders: No Hx Bronchitis: Yes (hx of) - CARDIOVASCULAR Hx Cardio Disorders: Yes Hx CHF: Yes Hx Hypertension: Yes Hx Irregular Heartbeat: Yes Hx Pacemaker/Defib: Yes Hx Coronary Stent: Yes Comment:: MVP, cardioversion for afib - NEURO Hx Neuro Disorders: Yes Hx Weakness: Yes (gereralized) - GI Hx GI Disorders: Yes Hx Nausea/Vomiting: Yes (all the time from meds) Hx Wt Loss/Wt Gain: Yes (ascites) Comment:: hx custodial constipation - Hx Genitourinary Disorders: No - ENDOCRINE Hx Endocrine Disorders: Yes Hx Diabetes: Yes - MUSCULOSKELETAL Hx Musculoskeletal Disorders: Yes Hx Arthritis: Yes - PSYCH Hx Psych Problems: No - HEMATOLOGY/ONCOLOGY Hx Hematology/Oncology Disorders: No Hx Bruising: Yes Hx Cancer: Yes (skin) Hx Blood Transfusions: Yes Hx Blood Transfusion Reaction: No Family Medical History Any Significant Family History?: Yes Hx Diabetes: Father Hx Heart Disease: Mother Hx HTN: Mother Physical Exam - General General Appearance: Alert, Oriented x3, Cooperative, No acute distress - Head Head exam: Atraumatic, Normocephalic, Normal inspection - Eye Eye exam: Normal appearance, PERRL - Neck Neck exam: Normal inspection, Full ROM. negative: Tenderness - Respiratory Respiratory exam: Normal lung sounds bilaterally. negative: Respiratory distress - Cardiovascular Cardiovascular Exam: Irregular rhythm. negative: Normal rhythm - GI/Abdominal GI/Abdominal exam: Soft, Distended (chronic and stable per the patient.). negative: Guarding, Rebound, Rigid, Tenderness - Extremities Extremities exam: Normal capillary refill, Pedal edema (chronic.). negative: Normal inspection, Full ROM, Tenderness - Neurological Neurological exam: Alert. negative: Motor sensory deficit Course Vital Signs 05/11/17 11:10 Temperature 97.5 F L Pulse Rate 77 Respiratory 22 Rate Blood Pressure 120/71 Pulse Ox 94 L - Reevaluation(s) Reevaluation #1: The patient is doing very well. She did have a large BM in the ED and does feel better. She has no pain, nausea or vomiting. On exam her abdomen is very soft and nontender in all 4 quads. The patient states she has had this issue since her Miralax was stopped and she was taking it every day. I explained to her that it appears she could benefit from it but we will lower the dose to 3 per week. 05/11/17 12:46 Medical Decision Making - Data Complexity MDM Data: Labs Ordered and/or Reviewed - Lab Data Result diagrams: 05/11/17 11:44 05/11/17 11:44 Disposition Disposition: Discharge Clinical Impression: Constipation Qualifiers: Constipation type: slow transit constipation Qualified Code(s): K59.01 - Slow transit constipation Disposition: Home, Self-Care Condition: (1) Good Instructions: Constipation (ED) Additional Instructions: Please continue your regular medicines and add Miralax on Wed, Wed, and Wednesday. Please see your PCP later this week for recheck. Return to the ER for any pain , vomiting, or fever. Forms: Patient Portal Access Time of Disposition: 12:49 Quality - Quality Measures Quality Measures: N/A - Blood Pressure Screening Blood Pressure Classification: Pre-Hypertensive BP Reading Systolic Measurement: 120 Diastolic Measurement: 71 Screening for High Blood Pressure: < Pre-Hypertensive BP, F/U Documented > [ [id number]] Pre-Hypertensive Follow-up Interventions: Follow-up with rescreen every year.
[2017-05-11] MEDS: ONDANSETRON HCL IV 4 MG/2 ML VIAL IV ONE (11:47)
[2017-05-11 11:55] LABS: BASO % 0.2 % (0-6); EOS % 1.1 % (0-6); HEMATOCRIT 34.7 % (35.0-47.0); HEMOGLOBIN 11.4 gm/dl (11.6-16.0); LYMPH % 13.8 % (16-45); MEAN CELL VOLUME 95.6 fl (81-97); MEAN CORPUSCULAR HEMOGLOBIN 31.4 pg (27-33); MEAN CORPUSCULAR HGB CONC 32.9 g/dl (32-36); MEAN PLATELET VOLUME 10.4 fl (7.4-10.4); MONO % 9.9 % (0-9); PLATELET COUNT 157 K/uL (130-400); RED BLOOD COUNT 3.63 M/uL (3.80-5.40); RED CELL DISTRIBUTION WIDTH 17.7 % (11.5-14.5); WHITE BLOOD COUNT W/O DIFF 6.6 K/uL (4.2-12.2)
[2017-05-11 12:06] LABS: ALBUMIN 2.7 gm/dL (3.5-5.0); ANION GAP 8.2 (7-16); BILIRUBIN,DIRECT 0.1 mg/dL (0-0.3); BILIRUBIN,TOTAL 1.98 mg/dL (0.2-1.3); CARBON DIOXIDE 22.8 mmol/L (22-30); CREATININE 1.7 mg/dL (0.52-1.04)
[2017-05-11 12:07] LABS: INR 1.38; PARTIAL THROMBOPLASTIN TIME 36.1 SECONDS (24.5-39.1); PROTHROMBIN TIME (PATIENT) 15.6 SECONDS (9.5-12.1)
== END 2017-05-11 13:21 | disposition home or self-care (01) ==
LOC: ER 10:59
DX: K59.01 Slow transit constipation (principal); R11.0 Nausea; I48.91 Unspecified atrial fibrillation; I10 Essential (primary) hypertension; Z79.01 Long term (current) use of anticoagulants
CPT/HCPCS: 99284 ×2; 96374; 83690; 85025; 85730; 85610; 80076; 80048; J2405

== ENCOUNTER 2017-05-13 00:35 | Emergency (ER) | payer MEDICARE, BC ==
--- NOTE | 2017-05-13 00:45 | Emergency Department Record ---
History of Present Illness - General Chief Complaint: Fall Injury Stated Complaint: FALL Time Seen by Provider: 05/13/17 00:39 Source: Patient, EMS Mode of Arrival: EMS Limitations: No limitations - History of Present Illness Initial Comments: 86 yo female presents to ED for evaluation of a nose bleed following a slip from the cough at home resulting in injury to the nose. Patient applied nose clamp prior to EMS arrival, and bleeding has stopped. Patient is taking Eliquis for atrial fibrillation. Patient denies LOC or other injury. Patient' s only complaint on examination is that "it's cold". MD Complaint: Fall Onset/Timin -: Minutes(s) Fall From: Other (from sitting) When Fall Occurred: 1 hour [employer] Fall Witnessed: Yes, by family Place Fall Occurred: Home Loss of Consciousness: None Prolonged Down Time?: No Symptoms Prior to Fall: None Location: Face Severity: Mild Associated Symptoms: Denies - Alexandro Coma Scale Eye Response: (4) Open spontaneously Motor Response: (6) Obeys commands Verbal Response: (5) Oriented Alexandro Total: 15 - Related Data Home Medications Medication Instructions Recorded Confirmed Last Taken Insulin Aspart [Novolog] 4 unit SQ 1715 PRN 03/26/14 05/13/17 02/27/17 Insulin Glargine,Hum.rec.anlog 12 unit SQ QAM 03/26/14 05/13/17 02/27/17 [Lantus] Amiodarone HCl [Cordarone] 200 mg PO DAILY 04/07/16 05/13/17 05/11/17 Aspirin [Adult Low Dose Aspirin EC] 81 mg PO DAILY 04/07/16 05/13/17 05/11/17 Spironolactone [Aldactone] 25 mg PO BID 08/19/16 05/13/17 05/11/17 Levothyroxine Sodium [Synthroid] 88 mcg PO DAILY 12/04/16 05/13/17 05/11/17 Isosorbide Mononitrate [Imdur] 10 mg PO BID 03/06/17 05/13/17 05/11/17 Torsemide [Demadex] 20 mg PO DAILY 03/06/17 05/13/17 05/11/17 Apixaban [Eliquis] 2.5 mg PO BID 05/11/17 05/13/17 05/11/17 Lactulose 10 gm PO DAILY 05/11/17 05/13/17 Unknown Previous Rx's Medication Instructions Recorded Insulin Detemir [Levemir Flextouch] 12 unit SQ QD ml 03/09/17 Tramadol HCl [Ultram] 50 mg PO Q8H PRN 03/09/17 Allergies Allergy/AdvReac Type Severity Reaction Status Date / Time codeine Allergy Unknown ALTERED Verified 05/11/17 11:07 MENTAL STATUS erythromycin base Allergy Unknown ALTERED Verified 05/11/17 11:07 MENTAL STATUS Penicillins Allergy Unknown RASH Verified 05/11/17 11:07 Sulfa (Sulfonamide Allergy Unknown RASH Verified 05/11/17 11:07 Antibiotics) shellfish derived AdvReac VOMITING Verified 05/11/17 11:07 Review of Systems Constitutional: Denies: Chills, Fever, Malaise, Night sweats Eyes: Denies: Eye discharge, Eye pain ENT: Reports: Epistaxis. Denies: Congestion Respiratory: Denies: Cough, Dyspnea Cardiovascular: Denies: Chest pain, Dyspnea on exertion Endocrine: Denies: Fatigue, Heat or cold intolerance Gastrointestinal: Denies: Abdominal pain, Nausea, Vomiting Genitourinary: Denies: Incontinence, Retention Musculoskeletal: Denies: Arthralgia, Back pain, Gout, Joint swelling Skin: Denies: Bruising, Change in color Neurological: Denies: Abnormal gait, Confusion, Headache, Seizure Psychiatric: Denies: Anxiety Hematological/Lymphatic: Reports: Easy bleeding, Easy bruising. Denies: Anemia , Blood Clots Past Medical History - SOCIAL HISTORY Smoking Status: Never smoker Drug Use: None - RESPIRATORY Hx Respiratory Disorders: No Hx Bronchitis: Yes (hx of) - CARDIOVASCULAR Hx Cardio Disorders: Yes Hx CHF: Yes Hx Hypertension: Yes Hx Irregular Heartbeat: Yes Hx Pacemaker/Defib: Yes Hx Coronary Stent: Yes Comment:: MVP, cardioversion for afib - NEURO Hx Neuro Disorders: Yes Hx Weakness: Yes (gereralized) - GI Hx GI Disorders: Yes Hx Nausea/Vomiting: Yes (all the time from meds) Hx Wt Loss/Wt Gain: Yes (ascites) Comment:: hx [facility] constipation - Hx Genitourinary Disorders: No - ENDOCRINE Hx Endocrine Disorders: Yes Hx Diabetes: Yes - MUSCULOSKELETAL Hx Musculoskeletal Disorders: Yes Hx Arthritis: Yes - PSYCH Hx Psych Problems: No - HEMATOLOGY/ONCOLOGY Hx Hematology/Oncology Disorders: No Hx Bruising: Yes Hx Cancer: Yes (skin) Hx Blood Transfusions: Yes Hx Blood Transfusion Reaction: No Family Medical History Hx Diabetes: Father Hx Heart Disease: Mother Hx HTN: Mother Physical Exam - General General Appearance: Alert, Oriented x3, Cooperative Limitations: No limitations - Head Head exam: Atraumatic, Normocephalic, Normal inspection Head exam detail: negative: Abrasion, Contusion, Mccormick's sign, General tenderness, Hematoma, Laceration - Eye Eye exam: Normal appearance. negative: Conjunctival injection, Periorbital swelling, Periorbital tenderness, Scleral icterus - ENT Ear exam: negative: Auricular hematoma, Auricular trauma Nasal Exam: Dried blood. negative: Active bleeding, Discharge Mouth exam: negative: Muffled voice, Tongue elevation, Tongue normal - Neck Neck exam: Normal inspection. negative: Meningismus, Tenderness - Respiratory Respiratory exam: Normal lung sounds bilaterally. negative: Rales, Respiratory distress, Rhonchi, Stridor - Cardiovascular Cardiovascular Exam: Regular rate, Normal rhythm, Normal heart sounds - GI/Abdominal GI/Abdominal exam: Soft. negative: Rebound, Rigid, Tenderness - Rectal Rectal exam: Deferred - exam: Deferred - Extremities Extremities exam: Normal inspection. negative: Pedal edema, Tenderness - Back Back exam: Denies: CVA tenderness (R), CVA tenderness (L) - Neurological Neurological exam: Alert, Oriented X3. negative: Motor sensory deficit - Psychiatric Psychiatric exam: Normal affect, Normal mood - Skin Skin exam: Normal color. negative: Abrasion Type of lesion: negative: abrasion Course - Reevaluation(s) Reevaluation #1: 05/13/17 01:11 Hgb 11.4, HCT 33.9 (unchanged from 05/11), BUN 47 (similar to previous) Creatinine 1.8 (at baseline). Glucose is 62. Patient is currently in CT for imaging. Reevaluation #2: 05/13/17 01:25 CT Brain: Age-related atrophy, chronic micro-vascular changes. CT Maxillo-facial Bones: No acute fracture CT Cervical Spine: Degenerative changes, spondylosis with posterior osteophyte complex more prminent at C6-C7, nothing acute. Patient's nose clip has been off since arrival without reoccurrence of bleeding , and the patient/ were updated on all results. Patient appears stable for discharge at this time. Medical Decision Making - Lab Data Result diagrams: 05/13/17 00:49 05/13/17 00:49 Disposition Disposition: Discharge Clinical Impression: Anterior epistaxis Facial contusion Qualifiers: Encounter type: initial encounter Qualified Code(s): S00.83XA - Contusion of other part of head, initial encounter Disposition: Home, Self-Care Condition: (2) Stable Instructions: Fall Prevention for Older Adults (ED) Additional Instructions: Return to ED if your symptoms worsen or if you have any concerns. Follow-up with your family doctor in 3-5 days as directed. Forms: Patient Portal Access Time of Disposition: 01:31 Quality - Quality Measures Quality Measures: N/A - Blood Pressure Screening Blood Pressure Classification: Normal BP Reading Systolic Measurement: 111 Diastolic Measurement: 66 Screening for High Blood Pressure: < Normal BP, F/U Not Required > [G8783] Normal BP Follow-up Interventions: No follow-up required
[2017-05-13 00:55] LABS: BASO % 0.2 % (0-6); EOS % 1.3 % (0-6); GRAN % 74.8 % (47-80); HEMATOCRIT 33.9 % (35.0-47.0); HEMOGLOBIN 11.4 gm/dl (11.6-16.0); MEAN CELL VOLUME 95.8 fl (81-97); MEAN CORPUSCULAR HEMOGLOBIN 32.2 pg (27-33); MEAN CORPUSCULAR HGB CONC 33.6 g/dl (32-36); MEAN PLATELET VOLUME 9.9 fl (7.4-10.4); MONO % 11.7 % (0-9); PLATELET COUNT 183 K/uL (130-400); RED BLOOD COUNT 3.54 M/uL (3.80-5.40); RED CELL DISTRIBUTION WIDTH 17.8 % (11.5-14.5); WHITE BLOOD COUNT W/O DIFF 8.4 K/uL (4.2-12.2)
[2017-05-13 01:06] LABS: ALB/GLOB RATIO 0.8 (1.1-1.8); ALBUMIN 2.7 gm/dL (3.5-5.0); ANION GAP 8.6 (7-16); BILIRUBIN,TOTAL 1.92 mg/dL (0.2-1.3); CARBON DIOXIDE 23.4 mmol/L (22-30); CREATININE 1.8 mg/dL (0.52-1.04); TOTAL PROTEIN 6.1 gm/dL (6.3-8.2)
--- NOTE | 2017-05-13 15:07 | CT SCAN REPORT ---
EXAM: CT OF THE FACIAL BONES WITHOUT CONTRAST HISTORY: FALL WITH TRAUMA TO FACE. TECHNIQUE: Thin collimation helical CT examination of the facial bones was performed in the axial plane without intravenous contrast. Coronal and sagittal reformatted images were generated and reviewed. Comparison: Same day noncontrast CT examinations of the cervical spine and head. No prior facial bone examination available for comparison. FINDINGS: No acute facial bone fracture is demonstrated nor is there destructive bone lesion. The mandibular condyles are well seated within the glenoid fossae. The paranasal sinuses and mastoid air cells appear clear. Bilateral cataract surgery changes are noted. The ocular globes are otherwise normal in appearance. The retrobulbar fat is clear. The optic nerves and extraocular muscles are symmetric and normal in appearance. There is generalized atrophy within the visualized portions of the brain. There are degenerative changes scattered throughout the visualized cervical spine with moderate hypertrophic change of the atlantodental joint. No suspicious focal soft tissue abnormality. There is moderate atherosclerotic calcification of the carotid bifurcations. IMPRESSION: NO ACUTE FACIAL BONE FRACTURE IDENTIFIED. J[facility]BER: [id number] [facility]
--- NOTE | 2017-05-13 15:14 | CT SCAN REPORT ---
EXAM: CT OF THE HEAD WITHOUT CONTRAST HISTORY: FALL WITH TRAUMA TO FACE AND NOSE. PATIENT DENIES LOSS OF CONSCIOUSNESS. TECHNIQUE: Routine noncontrast CT examination of the head was obtained. Comparison: CT of the head without contrast dated 03/06/17. FINDINGS: Moderate dilatation of the subarachnoid spaces is redemonstrated consistent with generalized atrophy. The ventricles are near the upper limits of normal in caliber. Moderate periventricular and subcortical white matter lucencies are scattered in each cerebral hemisphere most pronounced in the parietal lobes, unchanged. These are nonspecific, but likely areas of chronic small vessel ischemia. No other area of abnormally increased or decreased attenuation is noted throughout the brain substance. No abnormal extraaxial fluid collection nor skull fracture is seen. The visualized paranasal sinuses and mastoid air cells are clear. Post cataract surgery changes are noted bilaterally. The orbits are otherwise unremarkable. IMPRESSION: 1. NO CT EVIDENCE OF ACUTE MAJOR VESSEL INFARCT, INTRACRANIAL HEMORRHAGE, MASS , NOR SKULL FRACTURE WITHOUT CHANGE IN APPEARANCE OF THE BRAIN SINCE 03/06/17. 2. GENERALIZED ATROPHY REDEMONSTRATED. 3. MODERATE PERIVENTRICULAR AND SUBCORTICAL WHITE MATTER LUCENCIES AGAIN NOTED SCATTERED IN EACH CEREBRAL HEMISPHERE. THESE ARE CONSISTENT WITH CHRONIC SMALL VESSEL ISCHEMIA. J[facility]BER: [id number] [facility]
--- NOTE | 2017-05-13 16:14 | CT SCAN REPORT ---
EXAM: CT SCAN CERVICAL SPINE WO CONTRAST HISTORY: FALL WITH TRAUMA TO NOSE AND FACE. PATIENT DENIES LOSS OF CONSCIOUSNESS. TECHNIQUE: Thin-collimation helical CT examination of the cervical spine is performed in the axial plane without intravenous contrast. Coronal and sagittal reformatted images are generated and reviewed. COMPARISON: CT cervical spine without contrast dated 03/06/2017. FINDINGS: Diffuse osteopenia again demonstrated, mildly limiting evaluation. Mild straightening of the normal cervical lordosis redemonstrated. Minimal anterolisthesis of C4 on C5 as well as C5 on C6 is again noted, stable. The vertebral bodies are otherwise normal in alignment and height. No acute fracture , destructive bone lesion, or prevertebral soft tissue swelling. Multilevel degenerative disc/degenerative endplate changes again noted most pronounced at the C5/C6 and C6/C7 levels. No gross central canal stenosis is, however, seen. Multilevel bilateral facet arthropathy is present most pronounced at the mid to upper levels, left greater than right, where the changes are severe. There is associated mild to moderate neural foraminal narrowing, stable. No new cervical mass nor adenopathy. Mild to moderate atherosclerotic calcification of the carotid bifurcations again noted. A dual lead transvenous cardiac stimulator is in place via the left subclavian approach, incompletely imaged. Bilateral pleural effusions, new or enlarging, are present. Mild biapical lung scarring. IMPRESSION: 1. NO CT EVIDENCE OF ACUTE FRACTURE, SUSPICIOUS SUBLUXATION, OR PREVERTEBRAL SOFT TISSUE SWELLING WITHOUT CHANGE IN APPEARANCE OF THE CERVICAL SPINE SINCE . 2. MULTILEVEL DEGENERATIVE CHANGES, DISCUSSED IN DETAIL ABOVE. 3. BILATERAL PLEURAL EFFUSIONS, NEW OR ENLARGING. 4. NOT MENTIONED ABOVE IS A POSSIBLE HYPODENSE NODULE IN THE LEFT THYROID LOBE MEASURING 7 MM IN MAXIMUM DIAMETER. THIS IS UNCHANGED. IT IS NONSPECIFIC THOUGH PROBABLY BENIGN. JOB NUMBER: [id number] [facility]
== END 2017-05-13 01:54 | disposition home or self-care (01) ==
LOC: ER 00:35
DX: S00.83XA Contusion of other part of head, initial encounter (principal); R04.0 Epistaxis; R53.1 Weakness; I48.91 Unspecified atrial fibrillation; I10 Essential (primary) hypertension; I50.9 Heart failure, unspecified; E11.9 Type 2 diabetes mellitus without complications; Z79.4 Long term (current) use of insulin; Z79.01 Long term (current) use of anticoagulants; W08.XXXA Fall from other furniture, initial encounter; Y92.009 Unspecified place in unspecified non-institutional (private) residence as the place of occurrence of the external cause
CPT/HCPCS: 70450; 70486; 72125; 80053; 85025; 99284

== ENCOUNTER 2017-05-17 08:40 | Emergency (ER) | payer MEDICARE, BC ==
[2017-05-17] MEDS ORDERED: ONDANSETRON HCL IV 4 MG/2 ML VIAL IV ONE (09:00)
[2017-05-17] MEDS ORDERED: CEFTRIAXONE SODIUM 1 GM in 0.9 % SODIUM CHLORIDE 100ML 100 ML IVPB ONE (09:25)
--- NOTE | 2017-05-17 09:25 | Emergency Department Record ---
History of Present Illness - General Chief complaint: Nausea, Vomiting, Diarrhea Stated complaint: CONSTIPATION Time Seen by Provider: 05/17/17 08:55 Source: Patient, Family Mode of Arrival: EMS Limitations: No limitations - History of Present Illness Initial comments: The patient is here due to developing nausea, vomiting, tremors and some mild SOB this AM about 4 hours ago. She has been having issues with chronic constipation recently and has been unable to have a BM for almost a week. She also is having mild abdominal discomfort for a few days which has also been a chronic issue. Today family noticed a red painful rash to her R anterior thigh which is new today. The patient has a long hx of renal insufficiency, cirrhosis , Afib and leg edema and is a DNR per family. This is the 3rd visit in 7 days for the patient here at [facility]. She was here a week ago due to the constipation and then feel the day after and was seen again. MD complaint: Nausea, Vomiting Onset/Timin -: Hour(s) Improves with: Bowel movement Worsens with: None - Related Data Home Medications Medication Instructions Recorded Confirmed Last Taken Insulin Aspart [Novolog] 4 unit SQ 1715 PRN 03/26/14 05/17/17 05/16/17 Insulin Glargine,Hum.rec.anlog 12 unit SQ QAM 03/26/14 05/17/17 05/16/17 [Lantus] Amiodarone HCl [Cordarone] 200 mg PO DAILY 04/07/16 05/17/17 05/16/17 Aspirin [Adult Low Dose Aspirin EC] 81 mg PO DAILY 04/07/16 05/17/17 05/16/17 Spironolactone [Aldactone] 25 mg PO BID 08/19/16 05/17/17 05/16/17 Levothyroxine Sodium [Synthroid] 88 mcg PO DAILY 12/04/16 05/17/17 05/16/17 Isosorbide Mononitrate [Imdur] 10 mg PO BID 03/06/17 05/17/17 05/16/17 Torsemide [Demadex] 20 mg PO DAILY 03/06/17 05/17/17 05/16/17 Apixaban [Eliquis] 2.5 mg PO BID 05/11/17 05/17/17 05/16/17 Lactulose 10 gm PO DAILY 05/11/17 05/17/17 05/16/17 Previous Rx's Medication Instructions Recorded Insulin Detemir [Levemir Flextouch] 12 unit SQ QD ml 03/09/17 Tramadol HCl [Ultram] 50 mg PO Q8H PRN 03/09/17 Allergies Allergy/AdvReac Type Severity Reaction Status Date / Time codeine Allergy Unknown ALTERED Verified 05/11/17 11:07 MENTAL STATUS erythromycin base Allergy Unknown ALTERED Verified 05/11/17 11:07 MENTAL STATUS Penicillins Allergy Unknown RASH Verified 05/11/17 11:07 Sulfa (Sulfonamide Allergy Unknown RASH Verified 05/11/17 11:07 Antibiotics) shellfish derived AdvReac VOMITING Verified 05/11/17 11:07 Travel Screening - Travel/Exposure Within Last 30 Days Have you traveled within the last 30 days?: No - Travel/Exposure Within Last Year Have you traveled outside the [place] in the last year?: No - Additonal Travel Details Have you been exposed to anyone with a communicable illness?: No - Travel Symptoms Symptom Screening: None Review of Systems Constitutional: Reports: Malaise. Denies: Chills, Fever Eyes: Denies: Eye discharge ENT: Denies: Congestion Respiratory: Reports: Dyspnea. Denies: Cough Cardiovascular: Denies: Arrhythmia, Chest pain Endocrine: Reports: Fatigue Gastrointestinal: Reports: Nausea, Vomiting. Denies: Diarrhea Genitourinary: Denies: Dysuria Musculoskeletal: Denies: Arthralgia, Back pain Past Medical History - SOCIAL HISTORY Smoking Status: Never smoker Alcohol Use: None Drug Use: None - RESPIRATORY Hx Respiratory Disorders: No Hx Bronchitis: Yes (hx of) - CARDIOVASCULAR Hx Cardio Disorders: Yes Hx CHF: Yes Hx Hypertension: Yes Hx Irregular Heartbeat: Yes Hx Pacemaker/Defib: Yes Hx Coronary Stent: Yes Comment:: MVP, cardioversion for afib - NEURO Hx Neuro Disorders: Yes Hx Weakness: Yes (gereralized) - GI Hx GI Disorders: Yes Hx Nausea/Vomiting: Yes (all the time from meds) Hx Wt Loss/Wt Gain: Yes (ascites) 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 - Hx Genitourinary Disorders: No - ENDOCRINE Hx Endocrine Disorders: Yes Hx Diabetes: Yes - MUSCULOSKELETAL Hx Musculoskeletal Disorders: Yes Hx Arthritis: Yes - PSYCH Hx Psych Problems: No - HEMATOLOGY/ONCOLOGY Hx Hematology/Oncology Disorders: No Hx Bruising: Yes Hx Cancer: Yes (skin) Hx Blood Transfusions: Yes Hx Blood Transfusion Reaction: No Family Medical History Any Significant Family History?: No Hx Diabetes: Father Hx Heart Disease: Mother Hx HTN: Mother Physical Exam - General General Appearance: Alert, Oriented x3, Cooperative, No acute distress - Head Head exam: Atraumatic, Normocephalic, Normal inspection - Eye Eye exam: Normal appearance, PERRL - Neck Neck exam: Normal inspection, Full ROM. negative: Tenderness - Respiratory Respiratory exam: Decreased breath sounds (at the bases.). negative: Respiratory distress - Cardiovascular Cardiovascular Exam: Regular rate, Normal rhythm, Normal heart sounds - GI/Abdominal GI/Abdominal exam: Soft, Diminished bowel sounds, Distended. negative: Guarding , Rebound, Rigid, Tenderness - Extremities Extremities exam: Pedal edema, Tenderness (There is mild tenderness and erythema and warmth to the anterior superior thigh area. It appears to be the beginning of cellulitis.). negative: Normal inspection - Neurological Neurological exam: Alert. negative: Motor sensory deficit - Psychiatric Psychiatric exam: negative: Anxious, Depressed - Skin Skin exam: negative: Petechiae, Rash Course Vital Signs 05/17/17 08:47 Temperature 98.3 F Pulse Rate 75 Respiratory 24 Rate Blood Pressure 129/66 Pulse Ox 90 L - Reevaluation(s) Reevaluation #1: The patient is resting comfortably and denies any CP or SOB. She is still complaining of intermittent feeling of constipation but denies any AP. Due to the CHF and ascited I do believe the patient will need a larger hospital and she would like to go to [facility] which is where she has been in the past for this. 05/17/17 11:35 Reevaluation #2: I did discuss the patient with Dr. Nguyen and he does accept the patient to [facility] in transfer. 05/17/17 11:50 Medical Decision Making - Data Complexity MDM Data: Labs Ordered and/or Reviewed, X-Ray Ordered and/or Reviewed - Lab Data Result diagrams: 05/17/17 09:18 05/17/17 09:18 - Radiology Data Radiology results: Report reviewed (CXR: CHF with effusions. Abd CT: anasarca with cirrhosis.) Disposition Disposition: Transfer Clinical Impression: Cirrhosis of liver with ascites Disposition: Acute Care Hospital Transfer Transfer To: [facility] Reason For Transfer: Ascites Accepting Physician: Mitri Time Discussed w/Accepting Physician: 11:51 Condition: (2) Stable Forms: Patient Portal Access Time of Disposition: 11:51 Quality - Quality Measures Quality Measures: N/A - Blood Pressure Screening View Details: Yes Blood Pressure Classification: Pre-Hypertensive BP Reading Systolic Measurement: 129 Diastolic Measurement: 66 Screening for High Blood Pressure: < Pre-Hypertensive BP, F/U Documented > [ G8950] Pre-Hypertensive Follow-up Interventions: Follow-up with rescreen every year.
[2017-05-17 09:29] LABS: HEMATOCRIT 35.2 % (35.0-47.0); HEMOGLOBIN 11.7 gm/dl (11.6-16.0); MEAN CELL VOLUME 95.9 fl (81-97); MEAN CORPUSCULAR HGB CONC 33.2 g/dl (32-36); MEAN PLATELET VOLUME 9.8 fl (7.4-10.4); PLATELET COUNT 224 K/uL (130-400); RED BLOOD COUNT 3.67 M/uL (3.80-5.40); RED CELL DISTRIBUTION WIDTH 17.7 % (11.5-14.5); WHITE BLOOD COUNT W/O DIFF 12.4 K/uL (4.2-12.2)
[2017-05-17 09:38] LABS: MEAN CORPUSCULAR HEMOGLOBIN 31.8 pg (27-33)
[2017-05-17 09:49] LABS: ALBUMIN 2.8 gm/dL (3.5-5.0); ANION GAP 11.5 (7-16); BILIRUBIN,TOTAL 1.7 mg/dL (0.2-1.3); CARBON DIOXIDE 22.5 mmol/L (22-30); CREATININE 1.7 mg/dL (0.52-1.04); TOTAL PROTEIN 6.4 gm/dL (6.3-8.2)
[2017-05-17 09:56] LABS: INR 1.42; PARTIAL THROMBOPLASTIN TIME 33.4 SECONDS (24.5-39.1); PROTHROMBIN TIME (PATIENT) 15.4 SECONDS (9.5-12.1)
[2017-05-17] MEDS ORDERED: FUROSEMIDE IV 40MG/4ML VIAL IVP ONE (10:49)
--- NOTE | 2017-05-18 07:37 | CT SCAN REPORT ---
EXAM: CT OF THE ABDOMEN AND PELVIS WITHOUT CONTRAST HISTORY: SWELLING AND SHAKING. TECHNIQUE: CT of the abdomen and pelvis was performed without oral or IV contrast. This limits evaluation of bowel and solid visceral organs. Comparison: Prior CT from 02/27/17. FINDINGS: Limited evaluation of the lung bases shows cardiomegaly with bilateral pleural effusions and adjacent consolidative change. Degenerative changes throughout the lumbar spine. The osseous structures are grossly otherwise intact. Stable atheromatous change. Diffuse anasarca. Nodular, shrunken contour to the liver worrisome for cirrhosis. Limited evaluation of the spleen shows multiple splenic granulomata. Small hiatal hernia noted. The adrenal glands and pancreas are grossly unremarkable. Bilateral renal cysts, the largest on the left having a septated appearance with multiple septate calcifications, as before. The kidneys are otherwise grossly unremarkable. No free intraperitoneal air. There is a large amount of stool in the colon. No gross evidence for bowel obstruction. Small anterior abdominal wall hernia extending to the right of midline containing fluid. IMPRESSION: FINDINGS SUSPICIOUS FOR CIRRHOTIC CHANGE TO THE LIVER. MODERATE TO LARGE VOLUME OF ASCITES. ANASARCA. BILATERAL PLEURAL EFFUSIONS WITH ADJACENT CONSOLIDATIVE CHANGES. 2. GROSSLY STABLE BILATERAL RENAL CYSTS. STABLE ATHEROMATOUS CHANGE. JOB NUMBER: [id number] [facility]
--- NOTE | 2017-05-18 07:47 | RADIOLOGY REPORT ---
EXAM: CHEST, TWO VIEWS HISTORY: SHORTNESS OF BREATH. TECHNIQUE: Frontal and lateral views of the chest were obtained. Comparison: 03/09/17 chest. FINDINGS: Cardiomegaly with atheromatous change of the thoracic aorta. Left sided pacing device. Osteopenia. There is interstitial edema with bilateral pleural effusions. No pneumothorax. IMPRESSION: CARDIOMEGALY WITH PULMONARY EDEMA PATTERN. JOB NUMBER: [id number] [facility]
== END 2017-05-17 12:54 | disposition short-term general hospital (02) ==
LOC: ER 08:40
DX: K74.60 Unspecified cirrhosis of liver (principal); R18.8 Other ascites; R11.2 Nausea with vomiting, unspecified; R06.02 Shortness of breath; R19.7 Diarrhea, unspecified; K59.09 Other constipation; R21 Rash and other nonspecific skin eruption; I50.9 Heart failure, unspecified; I10 Essential (primary) hypertension; I48.91 Unspecified atrial fibrillation; Z79.01 Long term (current) use of anticoagulants
CPT/HCPCS: 99285 ×2; 96374; 96375; 83690; 85730; 85610; 80076; 80048; 85027; 71020; 74176; J2405; J1940

== ENCOUNTER 2017-06-25 16:01 | Emergency (ER) | payer MEDICARE, BC ==
--- NOTE | 2017-06-25 17:19 | Emergency Department Record ---
History of Present Illness - General Chief Complaint: Fall Injury Stated Complaint: FALL INJURY Time Seen by Provider: 06/25/17 16:45 Source: Patient Mode of Arrival: Stretcher Limitations: No limitations - History of Present Illness Initial Comments: pt is on hospice. pts was trying to help her back into bed when he lost his grasp and she fell on top of him. she got a scrape to her arm. she denies any pain or other injury. called 911 because he was worried about her.. pt and son state she needs nothing done and wants nothing done. she just wants to back home. Complaint: Fall Onset/Timin -: Hour(s) Fall From: Standing When Fall Occurred: 1 hour [employer] Fall Witnessed: Yes, by family Place Fall Occurred: Home Loss of Consciousness: None Prolonged Down Time?: No Symptoms Prior to Fall: Other Location - Extremities: Right: Arm Severity: Mild Context: Alcohol use Associated Symptoms: Denies - Alexandro Coma Scale Eye Response: (4) Open spontaneously Motor Response: (6) Obeys commands Verbal Response: (5) Oriented Alexandro Total: 15 - Related Data Previous Rx's Medication Instructions Recorded Insulin Detemir [Levemir Flextouch] 12 unit SQ QD ml 03/09/17 Tramadol HCl [Ultram] 50 mg PO Q8H PRN 03/09/17 Allergies Allergy/AdvReac Type Severity Reaction Status Date / Time codeine Allergy Unknown ALTERED Verified 05/11/17 11:07 MENTAL STATUS erythromycin base Allergy Unknown ALTERED Verified 05/11/17 11:07 MENTAL STATUS Penicillins Allergy Unknown RASH Verified 05/11/17 11:07 Sulfa (Sulfonamide Allergy Unknown RASH Verified 05/11/17 11:07 Antibiotics) shellfish derived AdvReac VOMITING Verified 05/11/17 11:07 Travel Screening - Travel/Exposure Within Last 30 Days Have you traveled within the last 30 days?: No - Travel/Exposure Within Last Year Have you traveled outside the [place] in the last year?: No - Additonal Travel Details Have you been exposed to anyone with a communicable illness?: No - Travel Symptoms Symptom Screening: None Review of Systems Reviewed: No additional complaints except as noted below Constitutional: Reports: As per HPI. Denies: Chills, Fever, Malaise, Night sweats, Weakness, Weight change Eyes: Reports: As per HPI. Denies: Eye discharge, Eye pain, Photophobia, Vision change ENT: Reports: As per HPI. Denies: Congestion, Dental pain, Ear pain, Epistaxis , Hearing loss, Throat pain Respiratory: Reports: As per HPI. Denies: Cough, Dyspnea, Hemoptysis, Stridor, Wheezes Cardiovascular: Reports: As per HPI. Denies: Arrhythmia, Chest pain, Dyspnea on exertion, Edema, Murmurs, Orthopnea, Palpitations, Paroxysmal nocturnal dyspnea, Rheumatic Fever, Syncope Endocrine: Reports: As per HPI. Denies: Fatigue, Heat or cold intolerance, Polydipsia, Polyuria Gastrointestinal: Reports: As per HPI. Denies: Abdominal pain, Constipation, Diarrhea, Hematemesis, Hematochezia, Melena, Nausea, Vomiting Genitourinary: Reports: As per HPI. Denies: Abnormal menses, Discharge, Dyspareunia, Dysuria, Frequency, Hematuria, Incontinence, Retention, Urgency Musculoskeletal: Reports: As per HPI. Denies: Arthralgia, Back pain, Gout, Joint swelling, Myalgia, Neck pain Skin: Reports: As per HPI. Denies: Bruising, Change in color, Change in hair/ nails, Lesions, Pruritus, Rash Neurological: Reports: As per HPI. Denies: Abnormal gait, Confusion, Headache, Numbness, Paresthesias, Seizure, Tingling, Tremors, Vertigo, Weakness Psychiatric: Reports: As per HPI. Denies: Anxiety, Auditory hallucinations, Depression, Homicidal thoughts, Suicidal thoughts, Visual hallucinations Hematological/Lymphatic: Reports: As per HPI. Denies: Anemia, Blood Clots, Easy bleeding, Easy bruising, Swollen glands Past Medical History - SOCIAL HISTORY Smoking Status: Never smoker Alcohol Use: None Drug Use: None - RESPIRATORY Hx Respiratory Disorders: No Hx Bronchitis: Yes (hx of) - CARDIOVASCULAR Hx Cardio Disorders: Yes Hx CHF: Yes Hx Hypertension: Yes Hx Irregular Heartbeat: Yes Hx Pacemaker/Defib: Yes Hx Coronary Stent: Yes Comment:: MVP, cardioversion for afib - NEURO Hx Neuro Disorders: Yes Hx Weakness: Yes (gereralized) - GI Hx GI Disorders: Yes Hx Nausea/Vomiting: Yes (all the time from meds) Hx Wt Loss/Wt Gain: Yes (ascites) Comment:: hx usp constipation - Hx Genitourinary Disorders: No - ENDOCRINE Hx Endocrine Disorders: Yes Hx Diabetes: Yes - MUSCULOSKELETAL Hx Musculoskeletal Disorders: Yes Hx Arthritis: Yes - PSYCH Hx Psych Problems: No - HEMATOLOGY/ONCOLOGY Hx Hematology/Oncology Disorders: No Hx Bruising: Yes Hx Cancer: Yes (skin) Hx Blood Transfusions: Yes Hx Blood Transfusion Reaction: No Family Medical History Any Significant Family History?: No Hx Diabetes: Father Hx Heart Disease: Mother Hx HTN: Mother Physical Exam - General General Appearance: Alert, Oriented x3, Cooperative, Mild distress - Head Head exam: Normal inspection - Eye Eye exam: Normal appearance, PERRL, EOMI Pupils: Normal accommodation - ENT ENT exam: Normal exam, Mucous membranes moist, Normal external ear exam, Normal orophraynx Ear exam: Normal external inspection. negative: External canal tenderness Nasal Exam: Normal inspection. negative: Discharge, Sinus tenderness Mouth exam: Normal external inspection, Tongue normal Teeth exam: Normal inspection. negative: Dental caries Throat exam: Normal inspection. negative: Tonsillar erythema, Tonsillar exudate - Neck Neck exam: Normal inspection, Full ROM. negative: Tenderness - Respiratory Respiratory exam: Normal lung sounds bilaterally. negative: Respiratory distress - Cardiovascular Cardiovascular Exam: Regular rate, Normal rhythm, Normal heart sounds - GI/Abdominal GI/Abdominal exam: Soft, Normal bowel sounds. negative: Tenderness - Rectal Rectal exam: Deferred - exam: Deferred - Extremities Extremities exam: Normal inspection, Full ROM, Normal capillary refill. negative: Tenderness - Back Back exam: Reports: Normal inspection, Full ROM. Denies: Muscle spasm, Rash noted, Tenderness - Neurological Neurological exam: Alert, CN II-XII intact, Normal gait, Oriented X3 - Psychiatric Psychiatric exam: Normal affect, Normal mood - Skin Skin exam: Dry, Intact, Normal color, Warm Course Vital Signs 06/25/17 06/25/17 16:02 16:14 Temperature 97.3 F L Pulse Rate 76 Respiratory 20 Rate Blood Pressure 111/65 Pulse Ox 90 L 98 Disposition Disposition: Discharge Clinical Impression: Hospice care patient Fall Qualifiers: Encounter type: initial encounter Qualified Code(s): W19.XXXA - Unspecified fall, initial encounter Disposition: Home, Self-Care Condition: (1) Good Instructions: Fall Prevention for Older Adults (ED), Weakness (ED) Additional Instructions: follow up with family doctor and with hospice. may return at any time Forms: Patient Portal Access Quality - Quality Measures Quality Measures: N/A - Blood Pressure Screening Does Patient Have Any of the Following: No Blood Pressure Classification: Normal BP Reading Systolic Measurement: 111 Diastolic Measurement: 65 Screening for High Blood Pressure: < Normal BP, F/U Not Required > [[id number]]
== END 2017-06-25 17:38 | disposition home or self-care (01) ==
LOC: ER 16:01
DX: S50.311A Abrasion of right elbow, initial encounter (principal); W06.XXXA Fall from bed, initial encounter; Y92.009 Unspecified place in unspecified non-institutional (private) residence as the place of occurrence of the external cause
CPT/HCPCS: 99282